=== PATIENT | male | born 1955 | race Caucasian/White ===

== ENCOUNTER 2024-02-03 22:57 | Inpatient (IN) | payer MEDICARE, SELFPAY ==
[2024-02-03 18:12] VITALS: BP 118/63
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
[2024-02-03 18:34] LABS: % Basophils 0.6 % (0-2); % Eosinophils 4.4 % (0-6); % Immature Granulocytes 0.7 % (0-0.5); % Lymphocytes 13.2 % (20.5-51.1); % Neutrophils 71.1 % (42.2-75.2); Absolute Basophils 0.1 10^3/uL (0-0.2); Absolute Eosinophils 0.4 10^3/uL (0-0.7); Absolute Immature Granulocytes 0.1 10^3/uL (0-0.05); Absolute Lymphocytes 1.2 10^3/uL (1.2-3.4); Absolute Monocytes 0.9 10^3/uL (0.1-0.6); Absolute Neutrophils 6.2 10^3/uL (1.4-6.5); Hematocrit 36.4 % (39.0-52.0); Hemoglobin 12.4 g/dL (13.0-18.0); Mean Corp Hgb Conc. 34.1 g/dL (33.0-37.0); Mean Corpuscular Hgb 30.5 pg (27.0-31.0); Mean Corpuscular Volume 89.7 fL (80.0-94.0); Mean Platelet Volume 9.9 fL (7.4-10.4); Nucleated Red Blood Cells % 0 % (-); Platelet Count 276 10^3/uL (130-400); Red Blood Cell Count 4.06 10^6/uL (4.70-6.10); Red Cell Dist. Width 13.4 % (11.5-14.5); White Blood Cell Count 8.7 10^3/uL (4.8-10.8)
[2024-02-03 18:51] LABS: ALT (SGPT) 38 U/L (0-50); AST (SGOT) 33 U/L (17-59); Albumin 3.6 g/dl (3.5-5.0); Alkaline Phosphatase 68 U/L (38-126); Blood Urea Nitrogen 22 mg/dl (9-20); Calcium 8.6 mg/dl (8.4-10.2); Carbon Dioxide 28 mmol/L (22-30); Chloride 99 mmol/L (98-107); Glucose 131 mg/dl (70-99); Potassium 4.1 mmol/L (3.5-5.1); Sodium 135 mmol/L (135-145); Total Bilirubin 0.5 mg/dl (0.2-1.3); Total Protein 6.1 g/dl (6.3-8.2); eGFR 37.71
[2024-02-03 19:02] LABS: NT-proBNP 1730 pg/ml; Troponin I < 0.012 ng/ml
[2024-02-03 20:29] VITALS: BP 134/84
[2024-02-03 21:30] VITALS: BP 152/72
[2024-02-03 21:41] VITALS: BMI 33.8
[2024-02-03] MEDS: LASIX 40 MG IV (21:44)
[2024-02-03] MEDS: PEPCID 20 MG IV (21:47)
[2024-02-03] MEDS: CARAFATE SUSPENSION 1 GM PO (21:47)
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
[2024-02-04] VITALS (13 sets, daily range): BP systolic 77–139; BP diastolic 55–101; BMI 32.9
[2024-02-04 00:52] LABS: COVID-19 Antigen Negative (Negative)
[2024-02-04 06:47] LABS: Hematocrit 34.7 % (39.0-52.0); Hemoglobin 11.6 g/dL (13.0-18.0); Mean Corp Hgb Conc. 33.4 g/dL (33.0-37.0); Mean Corpuscular Hgb 30.4 pg (27.0-31.0); Mean Corpuscular Volume 91.1 fL (80.0-94.0); Mean Platelet Volume 9.9 fL (7.4-10.4); Platelet Count 251 10^3/uL (130-400); Red Blood Cell Count 3.81 10^6/uL (4.70-6.10); Red Cell Dist. Width 13.4 % (11.5-14.5); White Blood Cell Count 8.4 10^3/uL (4.8-10.8)
[2024-02-04 07:01] LABS: Blood Urea Nitrogen 20 mg/dl (9-20); Calcium 8.3 mg/dl (8.4-10.2); Carbon Dioxide 24 mmol/L (22-30); Chloride 102 mmol/L (98-107); Estimated Creatinine Clearance 49 ml/min; Glucose 115 mg/dl (70-99); HDL Cholesterol 25 mg/dl; LDL Cholesterol, Calculated 133 mg/dl; Potassium 4.1 mmol/L (3.5-5.1); Sodium 135 mmol/L (135-145); Total Cholesterol 183 mg/dl (50-199); Triglyceride 125 mg/dl (10-149); Very Low Density Lipoprotein 25 mg/dl (0-30); eGFR 40.24
[2024-02-04 07:10] LABS: Troponin I < 0.012 ng/ml
[2024-02-04 07:31] LABS: TSH Reflex To Free T4 0.45 uIU/ml (0.47-4.68)
[2024-02-04] MEDS: BACTRIM DS 800 MG/160 MG 0.5 TABLET PO (08:13)
[2024-02-04] MEDS: LOW STRENGTH ASPIRIN 81 MG PO (08:13)
[2024-02-04] MEDS: ROXICODONE 5 MG PO ×4 (08:13→22:55)
[2024-02-04] MEDS: LOPRESSOR 25 MG PO (08:13)
[2024-02-04] MEDS: LASIX 40 MG IV (08:14)
[2024-02-04] MEDS: FLOMAX 0.4 MG PO (08:14)
[2024-02-04 08:39] LABS: Glycohemoglobin (HgbA1c) 5.8 % (4.0-5.6)
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
[2024-02-04 08:51] LABS: Free T4 1.56 ng/dl (0.78-2.19)
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
[2024-02-04] MEDS: ULORIC 40 MG PO (09:41)
[2024-02-04] MEDS: FLEXERIL 5 MG PO (11:34)
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
[2024-02-04 14:06] LABS: Troponin I < 0.012 ng/ml
[2024-02-04] MEDS: MIRALAX PO (16:49)
--- NOTE | 2024-02-04 17:43 | PTCARENOTE ---
Patient admitted to IVU, oriented to room and call pulido. Placed on telemetry. Plan of care reviewed with patient, call pulido in reach
[2024-02-04] MEDS: LOVENOX 30 MG SC (17:56)
[2024-02-04 23:16] LABS: Ionized Calcium 1.09 mMOL/L (1.15-1.33)
[2024-02-04 23:48] LABS: Blood Urea Nitrogen 25 mg/dl (9-20); Calcium 8.7 mg/dl (8.4-10.2); Carbon Dioxide 28 mmol/L (22-30); Chloride 99 mmol/L (98-107); Estimated Creatinine Clearance 44 ml/min; Glucose 104 mg/dl (70-99); Magnesium 2.2 mg/dl (1.6-2.3); Potassium 3.7 mmol/L (3.5-5.1); Sodium 135 mmol/L (135-145); eGFR 37.71
[2024-02-05] VITALS (13 sets, daily range): BP systolic 100–139; BP diastolic 53–115; BMI 33.0
[2024-02-05] MEDS: KCL 20 MEQ PO (00:58)
[2024-02-05] MEDS: CALCIUM GLUCONATE 100 IV (00:58)
[2024-02-05 05:43] LABS: B.E. 1.7 mmol/L; HCO3 26.6 mmol/L (21-28); O2 Saturation % 97.7 % (94-98); PCO2 42 mmHg (35-48); PO2 81 mmHg (83-108); pH 7.41 (7.35-7.45)
[2024-02-05 05:53] LABS: O2 Therapy ROOM AIR
[2024-02-05 06:10] LABS: Hematocrit 36.7 % (39.0-52.0); Hemoglobin 12.4 g/dL (13.0-18.0); Mean Corp Hgb Conc. 33.8 g/dL (33.0-37.0); Mean Corpuscular Hgb 30.3 pg (27.0-31.0); Mean Corpuscular Volume 89.7 fL (80.0-94.0); Platelet Count 273 10^3/uL (130-400); Red Blood Cell Count 4.09 10^6/uL (4.70-6.10); Red Cell Dist. Width 13.3 % (11.5-14.5); White Blood Cell Count 7.7 10^3/uL (4.8-10.8)
[2024-02-05 06:28] LABS: INR 1.04; PT 13.9 Sec (11.4-14.6)
[2024-02-05 06:29] LABS: APTT 36.5 Sec (23.4-35.0)
[2024-02-05 06:33] LABS: ALT (SGPT) 34 U/L (0-50); AST (SGOT) 29 U/L (17-59); Albumin 3.4 g/dl (3.5-5.0); Alkaline Phosphatase 57 U/L (38-126); Blood Urea Nitrogen 24 mg/dl (9-20); Calcium 9.2 mg/dl (8.4-10.2); Carbon Dioxide 29 mmol/L (22-30); Chloride 100 mmol/L (98-107); Direct Bilirubin 0.1 mg/dl (0.0-0.4); Estimated Creatinine Clearance 44 ml/min; Glucose 115 mg/dl (70-99); Potassium 4.4 mmol/L (3.5-5.1); Sodium 136 mmol/L (135-145); Total Bilirubin 0.6 mg/dl (0.2-1.3); Total Protein 5.8 g/dl (6.3-8.2); eGFR 37.71
[2024-02-05] MEDS: LASIX 40 MG IV (08:00)
[2024-02-05] MEDS: LOW STRENGTH ASPIRIN 81 MG PO (08:01)
[2024-02-05] MEDS: MIRALAX 17 GRAMS PO (08:01)
[2024-02-05] MEDS: BACTRIM DS 800 MG/160 MG 0.5 TABLET PO (08:01)
[2024-02-05] MEDS: ROXICODONE 5 MG PO ×3 (08:01→22:12)
--- NOTE | 2024-02-05 08:45 | PTCARENOTE ---
Assumed care. Patient awake and sitting on side of bed. Requiring oxygen 2 liters NC overnight POX 88% on room air and frequent PVC's while sleeping. Currently NSR, POX 99% on room air while awake. Fine rales right base, 40 mg IV Lasix given as
scheduled. NPO for cath today
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
--- NOTE | 2024-02-05 09:31 | CM ---
Reviewed chart. Met with Mr. Manjarrez to review discharge plans. He states prior to admission he resides alone in a second floor walk-up apartment. He states he has a full flight of steps to get to his apartment. Once inside the apartment
everything is on one level. He states prior to admission he was independent with ambulation and adls. He states he does not have any DME in the home. He states he has a prescription plan. Medical work-up in progress. The discharge plan is to
return home when medically stable.
--- NOTE | 2024-02-05 12:06 | PTCARENOTE ---
Patient sent to the open hearth laborer in a wheelchair
[2024-02-05] MEDS: ROXICODONE PO (14:52)
--- NOTE | 2024-02-05 16:34 | ITS.CL.CATH ---
Air Tool Operator - Catheterization
Cardiac Catheterization
Procedure Report:
LEFT HEART CATHETERIZATION
Date of Procedure: February 05, 2024
Referring: Abimael Armen
PROCEDURES:
1. Left heart catheterization, coronary angiogram.
2. Ultrasound-guided access
INDICATION: Preoperative prior to mitral valve intervention for severe mitral regurgitation
ACCESS: Right radial artery, 6 Irish sheath, under ultrasound-guided
HEMODYNAMICS : (mmHg)
AO (s/d) : 106/69
LV (s/d) : 106/8
LVEDP : 15
CORONARY FINDINGS
DOMINANCE: Right
LEFT MAIN: The left main artery is a large-caliber vessel which gives rise to the left anterior descending artery and the left circumflex artery. There is minimal luminal irregularities.
LEFT ANTERIOR DESCENDING: The left anterior descending artery is a medium caliber vessel which gives rise to 1 major diagonal branch as it courses through the anterior interventricular groove and wraps around the apex. There is minimal luminal
irregularities.
CIRCUMFLEX: The left circumflex artery is a medium caliber vessel which gives rise to 1 major obtuse marginal branch. There is mild diffuse atherosclerotic plaque.
RIGHT CORONARY ARTERY: The right coronary artery is a large-caliber, dominant vessel which gives rise to the right posterior descending artery and a large right posterolateral system. There is mild diffuse atherosclerotic plaque.
SEDATION: 35 minutes of procedural sedation was utilized. An independent medical transcription radiology was present to assist with and help manage the patient's level of consciousness and physiologic status.
RADIATION SUMMARY: Fluoro Time (min): 1.9, Dose (mGy): 562.86, DAP (Gy.cm2) : 38.8
Closure Device: Vascular band over right radial artery, 10 cc of air.
CONCLUSIONS
1. No obstructive coronary artery disease.
2. LVEDP of 15 mmHg.
RECOMMENDATIONS
1. Wean radial band per protocol.
2. Optimization of cardiovascular risk factors.
3. Defer to CT surgery in regards to mitral valve surgical intervention
4. Eventual referral for outpatient cardiac rehab..
Copy to: Abimale Ayers, and Avel Hayes
Araceli Washington MD, FACC, [facility]
--- NOTE | 2024-02-05 16:49 | PTCARENOTE ---
patient received from optical laboratory manager, AO x3. NSR 86, 132/80. Right radial band in place, precautions reviewed, call pulido in reach
[2024-02-05] MEDS: NSS 1000 IV (17:09)
--- NOTE | 2024-02-05 20:57 | PTCARENOTE ---
Rec'd pt at change of shift. PT AAO*3, VSS, NSR with PVC's on monitor, and pleasant. Pt denies any pain or discomfort. Pt verbalizes comfort and safety. Pt resting in bed with call pulido in reach and agreeable to plan of care. Plan of care
ongoing.
[2024-02-05] MEDS: LOVENOX 30 MG SC (22:12)
[2024-02-06] VITALS (13 sets, daily range): BP systolic 93–146; BP diastolic 45–115; PULSE 76; O2SAT 96; BMI 32.8
[2024-02-06 04:19] LABS: Hematocrit 42.6 % (39.0-52.0); Hemoglobin 14.2 g/dL (13.0-18.0); Mean Corp Hgb Conc. 33.3 g/dL (33.0-37.0); Mean Corpuscular Volume 90.1 fL (80.0-94.0); Platelet Count 340 10^3/uL (130-400); Red Blood Cell Count 4.73 10^6/uL (4.70-6.10); Red Cell Dist. Width 13.3 % (11.5-14.5)
[2024-02-06 04:26] LABS: Blood Urea Nitrogen 25 mg/dl (9-20); Calcium 9.1 mg/dl (8.4-10.2); Carbon Dioxide 24 mmol/L (22-30); Chloride 102 mmol/L (98-107); Estimated Creatinine Clearance 49 ml/min; Glucose 106 mg/dl (70-99); Potassium 4.6 mmol/L (3.5-5.1); Sodium 136 mmol/L (135-145)
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
[2024-02-06] MEDS: ROXICODONE 5 MG PO ×4 (09:24→22:41)
[2024-02-06] MEDS: MIRALAX 17 GRAMS PO (09:24)
[2024-02-06] MEDS: BACTRIM DS 800 MG/160 MG 0.5 TABLET PO (09:25)
[2024-02-06] MEDS: LOW STRENGTH ASPIRIN 81 MG PO (09:25)
[2024-02-06] MEDS: FLOMAX 0.4 MG PO (09:25)
[2024-02-06] MEDS: LASIX 40 MG IV (09:30)
--- NOTE | 2024-02-06 10:43 | W.PN.UPDATE ---
Update Note
Progress Note Update
I met with MR. Manjarrez this morning at the bedside. Severe MR with respiratory failure for admission. 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 There is a large prolapsed segment of P2/3 into the
commissural leaflet with flailed (torn) chords. Reviewing his older TTEs, he had some degree of MR then but likely exacerbated with new torn chords this time around. No significant COR disease. We discussed the risks and benefits of surgery, with
his prior multiple orthopedic traumas to the chest, CKD at baseline, I would offer him sternotomy as an approach with the intent for MV repair + MANDEEP Clip. His STS was reviewed. Tentative plan would be for OR tomorrow with me as second case. I plan
to [place] back around to discuss with his family once they arrive.
--- NOTE | 2024-02-06 11:18 | W.PN.UPDATE ---
Update Note
Progress Note Update
:�Isolated MVr
PERIOPERATIVE OUTCOME ESTIMATE %
Operative Mortality 3.13%
Morbidity & Mortality 14%
Stroke 0.855%
Renal Failure 5.43%
Reoperation 3.82%
Prolonged Ventilation 9.85%
Deep Sternal Wound Infection 0.076%
Long Hospital Stay (>14 days) 13.9%
Short Hospital Stay (<6 days)* 19.1%
*higher values reflect a better outcome
Clinical Summary
Planned Surgery: Isolated MVr, Urgent, First cardiovascular surgery
Demographics: 68 year old, White, male, 103kg, 178cm, BMI: 32.5 kg/m�
Insurance/Payor: Medicare
Lab Values: Creatinine: 1.9 mg/dL, Hematocrit: 42.6%, WBC Count: 9 10�/�L, Platelet Count: 415361 cells/�L
Substance Abuse: Former smoker, Alcohol use: <=1 drink/week
Risk Factors / Comorbidities: Liver Disease, Hypertension
Pulmonary RF: Moderate CLD
Cardiac Status: Acute and chronic heart failure, Ejection Fraction = 60%
Coronary Artery Disease: No coronary symptoms
Valve Disease: Severe MR, Trivial/Trace TR
Arrhythmia: Remote V. Tach / V. Fib
--- NOTE | 2024-02-06 12:13 | CM ---
Reviewed chart. Met with Mr. Manjarrez to review discharge plans. Prior to admission he resides alone in a second floor walk-up apartment. He has a full flight of steps to get into his apartment. It is a one level once inside the apartment.
Prior to admission he was independent with ambulation and adls. He does not have any DME in the home. He has a prescription plan. Medical work-up in progress. The discharge plan is to return home with a home visit by the Transitional Care Nurse
when medically stable.
We reviewed pre-op and post-op routines. We briefly reviewed the shower instructions. Gave him the Cardiothoracic Surgery Educational Booklet. We We reviewed restrictions including sternal precautions and driving restrictions. We also discussed a
home visit by the Transitional Care Nurse. He is agreeable to a home visit. The plan is to [facility] on 02/07/24.
--- NOTE | 2024-02-06 13:24 | W.PN.CD ---
Today's Communication / Plan
-
Likely MVR tomorrow.
GDMT post op.
Impression / Plan
-
Impression/Plan: 68M with recovered stress-induced cardiomyopathy, increased LVOT gradient, mitral regurgitation, right lower extremity DVT status post IVC filter (2011), chronic osteomyelitis on chronic suppression antibiotics, hypertension and
nonobstructive coronary artery disease by cardiac catheterization (2013) admitted with worsening HFpEF, found to have severe mitral valve regurgitation.
#HFpEF
-Acute, new diagnosis, due to severe mitral valve regurgitation.
-Furosemide 40 mg IV.
-Start GDMT after MVR.
#Severe, degenerative mitral regurgitation
-Acute.
-Flail P2 with torn chordae.
-CT surgery consulted. Tentative plan for OR 02/07/2024.
#CAD
-Chronic.
-No angina.
-Nonobstructive by cardiac catheterization 2013, again yesterday.
-Medical management with aspirin and statin.
#Increased LVOT gradient
-In 2013 there was a gradient in the LVOT at rest (9 mmHg), increasing up to 52 mmHg with Valsalva.
-Updated TTE does not show LVOT gradient.
#Acute on chronic kidney disease
-Baseline creatinine (1.3-1.7).
-Creatinine on admission 1.9, down to 1.7 today.
-Avoid nephrotoxins.
#Hepatitis C status post Epclusa
#Prior DVT with IVC filter ([facility], 2011)
#Prediabetes, HbA1c 5.8%
#Chronic osteomyelitis on suppressive antibiotics
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
Primary auto servicer: Dr. Booth (last seen 12/2019)
Subjective/Interval History:
Weight down 0.6 kg (104.4 --> 103.8 kg).
VIOLETA confirms severe MR with flail P2/torn chords.
Creatinine down to 1.7
DATA:
TTE, 02/04/2024:
CONCLUSIONS
Normal biventricular size and systolic function without regional wall motion
abnormality.
Mild concentric left ventricular hypertrophy.
Flail posterior mitral valve leaflet with severe mitral regurgitation.
Severe pulmonary hypertension.
Compared to the prior on 03/17/2020, flail leaflet and severe mitral
regurgitation is new.
Transesophageal Echocardiogram, 02/05/2024:
CONCLUSIONS
Normal biventricular size and systolic function without regional wall motion
abnormality. LVEF 60-65%.
Flail P2 segment of the mitral valve with severe eccentric mitral
regurgitation.
No other significant valvular disease.
No evidence of pulmonary hypertension (28 mmHg).
Trivial circumferential pericardial effusion.
Compared to TTE on 02/04/2024, there is no significant change accounting for
differences in technique.
Cardiac Catheterization, 02/05/2024:
CONCLUSIONS
1. No obstructive coronary artery disease.
2. LVEDP of 15 mmHg.
Physical Exam
Vital Signs/Labs
Vital Signs
Temp Pulse Resp BP Pulse Ox
37.3 C 86 20 127/75 95
02/06/24 11:42 02/06/24 09:30 02/06/24 11:42 02/06/24 09:30 02/06/24 11:42
02/05/24 02/06/24 02/07/24
11:59 11:59 11:59
Actual Weight 104.4 kg 103.8 kg
02/06/24 03:24
02/06/24 03:24
PT 13.9 Sec (11.4-14.6) 02/05/24 05:55
INR 1.04 02/05/24 05:55
APTT 36.5 Sec (23.4-35.0) H 02/05/24 05:55
Magnesium 2.2 mg/dl (1.6-2.3) 02/04/24 23:07
Triglycerides 125 mg/dl (10-149) 02/04/24 06:36
LDL Cholesterol, Calc 133 mg/dl 02/04/24 06:36
VLDL Cholesterol, Calc 25 mg/dl (0-30) 02/04/24 06:36
HDL Cholesterol 25 mg/dl 02/04/24 06:36
Free T4 1.56 ng/dl (0.78-2.19) 02/04/24 06:36
02/03/24
18:28
Wxz-B-Nabnluhmbcn Pept 1730
LAB Results
02/03/24 02/04/24 02/04/24
18:28 06:36 09:01
Troponin I < 0.012 < 0.012 Cancelled
02/04/24 02/04/24 02/04/24
12:46 15:01 18:00
Troponin I < 0.012 Cancelled Cancelled
Physical Exam
Constitutional: No acute distress and Comfortable
EENT: Anicteric and Moist mucous membranes
Cardiovascular: Rhythm & rate is regular, Pedal edema is absent, JVD pressure is normal, Systolic murmur present and S1S2 is normal
Respiratory: Respiratory effort normal, Lungs clear to auscul., Wheeze Absent, Crackles Absent and Rhonchi Absent
GI: Soft, Distention absent, Flat, Non tender and Normal bowel sounds
Neuro/Psych: AO x 3
Other: Cath Site (Right radial/antecubital access site is C/D/I.)
Data Reviewed
-
Date of Service: February 06, 2024
Medical Decision Making: Reviewed Test Results, Independent Historian Assessment and Test Interpretation
EKG: Tracing Personally Visualized and interpreted and Report Reviewed by me
Echo: Tracing Personally Visualized and interpreted and Report Reviewed by me
X-Ray/CT/US/MRI/NUC/PET: Image Personally Visualized and interpreted and Report Reviewed by me
Medical Tests (PFT, Pathology etc): Image Personally Visualized and interpreted and Report Reviewed by me
Labs: Labs Reviewed by me
Old Records: Reviewed
--- NOTE | 2024-02-06 14:18 | PTCARENOTE ---
Discussed all nursing measures prior to implementation. Encouraged questions. Will monitor.
[2024-02-06] MEDS: ULORIC PO (18:01)
--- NOTE | 2024-02-06 20:00 | PTCARENOTE ---
Patient received from IVU, ambulated into room. Oriented, no acute complaints of pain. SR on the monitor with frequent PVCs and RBBB; murmur auscultated. Lungs diminished, satting 96% on RA, no cough. Abdomen obese, normoactive bowel sounds, reports
low appetite over the last few months. Voiding in the bathroom per day shift nurse. PIV x1 in RAC. VSS. Updated on POC, in agreement, call pulido within reach. Assessment of needs ongoing.
--- NOTE | 2024-02-06 20:00 | PTCARENOTE ---
Patient received from IVU, ambulated into room. Oriented, no acute complaints of pain. SR on the monitor with frequent PVCs; murmur auscultated. Lungs diminished, satting 96% on RA, no cough. Abdomen obese, normoactive bowel sounds, reports low
appetite over the last few months. Voiding in the bathroom without difficulty per day shift nurse. Counseled patient on using urinal for I&O's. PIV x1 in RAC. VSS. Updated on POC, in agreement, call pulido within reach. Assessment of needs ongoing.
[2024-02-07] VITALS (13 sets, daily range): BP systolic 100–130; BP diastolic 56–77; BMI 32.4
--- NOTE | 2024-02-07 | PTCARENOTE ---
Patient sleeping between care. Took first shower with CHG per pre op protocol. Reminded the patient to use the urinal to I/O measurement. VSS.
--- NOTE | 2024-02-07 04:30 | PTCARENOTE ---
Assessment unchanged, VSS. Patient prepped for surgery, patient surgical sites clipped, took second CHG shower, wiped with CHG wipes, and placed in a new gown. Therapeutic communication utilized to assuage concerns. Patient in bed awaiting call for
OR. NPO since midnight. Call pulido within reach.
[2024-02-07] MEDS: PROTONIX 40 MG PO (05:04)
[2024-02-07] MEDS: MAGNESIUM OXIDE 500 MG PO (05:04)
[2024-02-07] MEDS: LOPRESSOR 25 MG PO (05:04)
[2024-02-07] MEDS: BACTROBAN 2% OINTMENT 1 APPLIC NASAL ×2 (05:06→20:24)
[2024-02-07 06:06] LABS: Blood Urea Nitrogen 25 mg/dl (9-20); Calcium 9.1 mg/dl (8.4-10.2); Carbon Dioxide 31 mmol/L (22-30); Chloride 98 mmol/L (98-107); Estimated Creatinine Clearance 46 ml/min; Glucose 107 mg/dl (70-99); Magnesium 2.3 mg/dl (1.6-2.3); Potassium 4.3 mmol/L (3.5-5.1); Sodium 136 mmol/L (135-145); eGFR 40.24
--- NOTE | 2024-02-07 06:13 | W.CVOR.SURPR ---
CVOR Surgeon Immed Pre Op
-
I have examined this patient prior to performance of the scheduled procedure.
The patient's condition is unchanged from the time of the dictated/written History and
Physical and the patient is able to undergo the scheduled procedure.
Sternotomy MVrR + MANDEEP Clip
--- NOTE | 2024-02-07 07:26 | W.PN.CD ---
Today's Communication / Plan
-
Hold furosemide this morning.
MVR today.
Impression / Plan
-
Impression/Plan: 68M with recovered stress-induced cardiomyopathy, increased LVOT gradient, mitral regurgitation, right lower extremity DVT status post IVC filter (2011), chronic osteomyelitis on chronic suppression antibiotics, hypertension and
nonobstructive coronary artery disease by cardiac catheterization (2013) admitted with worsening HFpEF, found to have severe mitral valve regurgitation.
#HFpEF
-Acute, new diagnosis, due to severe mitral valve regurgitation.
-Hold furosemide this morning.
-Start GDMT after MVR.
#Severe, degenerative mitral regurgitation
-Acute.
-Flail P2 with torn chordae.
-CT surgery consulted. Tentative plan for OR 02/07/2024.
#CAD
-Chronic.
-No angina.
-Nonobstructive by cardiac catheterization 2013, again yesterday.
-Medical management with aspirin and statin.
#Increased LVOT gradient
-In 2013 there was a gradient in the LVOT at rest (9 mmHg), increasing up to 52 mmHg with Valsalva.
-Updated TTE does not show LVOT gradient.
#Acute on chronic kidney disease
-Baseline creatinine (1.3-1.7).
-Creatinine on admission 1.9, down to 1.7 today.
-Avoid nephrotoxins.
#Hepatitis C status post Epclusa
#Prior DVT with IVC filter ([facility], 2011)
#Prediabetes, HbA1c 5.8%
#Chronic osteomyelitis on suppressive antibiotics
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
Primary reinforcing rod layer: Dr. Booth (last seen 12/2019)
Subjective/Interval History:
Weight down an additional 1.4 kg (103.8 --> 102.4).
Plan for surgery today.
Creatinine stable at 1.8.
DATA:
TTE, 02/04/2024:
CONCLUSIONS
Normal biventricular size and systolic function without regional wall motion
abnormality.
Mild concentric left ventricular hypertrophy.
Flail posterior mitral valve leaflet with severe mitral regurgitation.
Severe pulmonary hypertension.
Compared to the prior on 03/17/2020, flail leaflet and severe mitral
regurgitation is new.
Transesophageal Echocardiogram, 02/05/2024:
CONCLUSIONS
Normal biventricular size and systolic function without regional wall motion
abnormality. LVEF 60-65%.
Flail P2 segment of the mitral valve with severe eccentric mitral
regurgitation.
No other significant valvular disease.
No evidence of pulmonary hypertension (28 mmHg).
Trivial circumferential pericardial effusion.
Compared to TTE on 02/04/2024, there is no significant change accounting for
differences in technique.
Cardiac Catheterization, 02/05/2024:
CONCLUSIONS
1. No obstructive coronary artery disease.
2. LVEDP of 15 mmHg.
Physical Exam
Vital Signs/Labs
Vital Signs
Temp Pulse Resp BP Pulse Ox
36.6 C 78 19 122/75 96
02/07/24 04:26 02/07/24 06:00 02/07/24 04:26 02/07/24 05:56 02/07/24 04:26
02/05/24 02/06/24 02/07/24
11:59 11:59 11:59
Actual Weight 104.4 kg 103.8 kg 102.4 kg
02/06/24 03:24
02/07/24 05:33
PT 13.9 Sec (11.4-14.6) 02/05/24 05:55
INR 1.04 02/05/24 05:55
APTT 36.5 Sec (23.4-35.0) H 02/05/24 05:55
Magnesium 2.3 mg/dl (1.6-2.3) 02/07/24 05:33
Triglycerides 125 mg/dl (10-149) 02/04/24 06:36
LDL Cholesterol, Calc 133 mg/dl 02/04/24 06:36
VLDL Cholesterol, Calc 25 mg/dl (0-30) 02/04/24 06:36
HDL Cholesterol 25 mg/dl 02/04/24 06:36
Free T4 1.56 ng/dl (0.78-2.19) 02/04/24 06:36
02/03/24
18:28
Ixr-O-Xuhwpuisary Pept 1730
LAB Results
02/04/24 02/04/24 02/04/24
09:01 12:46 15:01
Troponin I Cancelled < 0.012 Cancelled
02/04/24
18:00
Troponin I Cancelled
Physical Exam
Constitutional: No acute distress and Comfortable
EENT: Anicteric and Moist mucous membranes
Cardiovascular: Rhythm & rate is regular, Pedal edema is absent, JVD pressure is normal, Systolic murmur present and S1S2 is normal
Respiratory: Respiratory effort normal, Lungs clear to auscul., Wheeze Absent, Crackles Absent and Rhonchi Absent
GI: Soft, Distention absent, Flat, Non tender and Normal bowel sounds
Neuro/Psych: AO x 3
Data Reviewed
-
Date of Service: February 07, 2024
Medical Decision Making: Reviewed Test Results, Independent Historian Assessment and Test Interpretation
EKG: Tracing Personally Visualized and interpreted and Report Reviewed by me
Echo: Tracing Personally Visualized and interpreted and Report Reviewed by me
X-Ray/CT/US/MRI/NUC/PET: Image Personally Visualized and interpreted and Report Reviewed by me
Medical Tests (PFT, Pathology etc): Image Personally Visualized and interpreted and Report Reviewed by me
Labs: Labs Reviewed by me
[2024-02-07] MEDS: BACTRIM DS 800 MG/160 MG 0.5 TABLET PO (08:50)
[2024-02-07] MEDS: LASIX IV (08:50)
[2024-02-07] MEDS: ROXICODONE 5 MG PO (08:50)
[2024-02-07] MEDS: LOW STRENGTH ASPIRIN 81 MG PO ×2 (08:51→21:21)
[2024-02-07] MEDS: MIRALAX PO (08:52)
--- NOTE | 2024-02-07 10:51 | CM ---
Chart reviewed. Patient is in the OR today. Patient is independent of ADLS, lives alone in a 2nd floor apartment, full flight of stairs, 0 DME. Plan is for the patient to return home with CT Transitional RN. CM to follow
[2024-02-07] MEDS: ROXICODONE PO (11:37)
[2024-02-07 11:43] LABS: ACT+ - POC 104 Seconds (82-134)
[2024-02-07 12:03] LABS: Urine Albumin 1+ (Neg - Trace); Urine Bilirubin 1+ (Negative); Urine Character Slightly Cloudy (Clear); Urine Color Yellow; Urine Glucose Negative (Negative); Urine Ketone 1+ (Negative); Urine Leukocyte 1+ (Negative); Urine Nitrite Positive (Negative); Urine Occult Blood 4+ (Negative); Urine Urobilinogen 1+ (Neg - 1+)
[2024-02-07 12:30] LABS: Urine Amorphous Seen; Urine Red Blood Cell >100 /HPF (0-2)
[2024-02-07 12:34] LABS: Urine Bacteria Many (Negative)
[2024-02-07 12:48] LABS: ACT+ - POC 471 Seconds (82-134)
[2024-02-07 13:07] LABS: B.E. - POC -0.5 mmol/L; Glucose - POC 113 mg/dl (70-99); HCO3 - POC 25 mmol/L (21-28); Hematocrit - POC 36 % PCV (42-52); Hemodilution- POC Yes; Hemoglobin Calculated - POC 12.2; Ionized Calcium - POC 1.19 mmol/L (1.15-1.33); O2 Saturation %Calculated-POC 99.1 % (94-98); PCO2 - POC 42 mmHg (35-48); PO2 - POC 138 mmHg (83-108); POC Comment PRE; Potassium - POC 3.9 mmol/L (3.5-5.1); Sodium - POC 141 mmol/L (136-145); Specimen Type - POC Arterial; pH - POC 7.38 (7.35-7.45)
[2024-02-07 13:18] LABS: ACT+ - POC 460 Seconds (82-134)
[2024-02-07 13:54] LABS: B.E. - POC 4.7 mmol/L; Glucose - POC 127 mg/dl (70-99); HCO3 - POC 31 mmol/L (21-28); Hematocrit - POC 27 % PCV (42-52); Hemodilution- POC Yes; Hemoglobin Calculated - POC 9.3; Ionized Calcium - POC 1.04 mmol/L (1.15-1.33); O2 Saturation %Calculated-POC 99.9 % (94-98); PCO2 - POC 52 mmHg (35-48); PO2 - POC 310 mmHg (83-108); POC Comment CPB; Sodium - POC 137 mmol/L (136-145); Specimen Type - POC Arterial; pH - POC 7.38 (7.35-7.45)
[2024-02-07 14:09] LABS: ACT+ - POC 598 Seconds (82-134)
[2024-02-07 14:48] LABS: B.E. - POC 2.9 mmol/L; Glucose - POC 178 mg/dl (70-99); HCO3 - POC 26 mmol/L (21-28); Hematocrit - POC 32 % PCV (42-52); Hemodilution- POC Yes; Hemoglobin Calculated - POC 10.9; Ionized Calcium - POC 1.02 mmol/L (1.15-1.33); O2 Saturation %Calculated-POC 99.6 % (94-98); PCO2 - POC 36 mmHg (35-48); PO2 - POC 172 mmHg (83-108); POC Comment CPB; Potassium - POC 5.5 mmol/L (3.5-5.1); Sodium - POC 136 mmol/L (136-145); Specimen Type - POC Arterial; pH - POC 7.48 (7.35-7.45)
[2024-02-07 14:51] LABS: ACT+ - POC 98 Seconds (82-134)
--- NOTE | 2024-02-07 15:18 | W.PN.CT.SURG ---
Addendum entered and electronically signed by Avel Hayes MD 02/07/24 15:46:
Procedure(s) Performed:
1. Standard sternotomy with aortic and bicaval cannulation
2. Left atrial appendage exclusion [35 mm clip]
3. Radical mitral valve repair [34 mm band annuloplasty, quadrangular resection of the P2 scallop with the flail/torn cords, free edge remodeling between P1 P2 and P2 P3 and artificial Diana-Aureliano cords placed to P1 P2 and P2 P3]
4. Placement of temporary atrial ventricular pacing wires
5. Transesophageal echocardiography\\
6. Patent Foramen Ovale Closure (Atrial Septal Defect), Primarily - done with 5-0 [prolene in a running fashion]
Original Note:
CT Surgery Operative Note
-
CARDIAC SURGERY OPERATIVE REPORT
Preoperative Diagnosis: Myxomatous mitral valve degeneration, flail/torn scallop of the posterior leaflet with severe mitral valve insufficiency and respiratory failure
Postoperative Diagnosis: Same
Procedure(s) Performed:
1. Standard sternotomy with aortic and bicaval cannulation
2. Left atrial appendage exclusion [35 mm clip]
3. Radical mitral valve repair [34 mm band annuloplasty, quadrangular resection of the P2 scallop with the flail/torn cords, free edge remodeling between P1 P2 and P2 P3 and artificial Diana-Aureliano cords placed to P1 P2 and P2 P3]
4. Placement of temporary atrial ventricular pacing wires
5. Transesophageal echocardiography
Date of Surgery: 02/07/2024
Comorbidities:
1. Respiratory failure secondary to acute on chronic congestive systolic and diastolic heart failure
2. Myxomatous mitral valve degeneration with torn/flail segment of the P2 scallop and severe insufficiency
3. History of hepatitis C treatment completed in the past
4. Chronic kidney disease
5. Chronic pain syndrome
6. History of severe traumatic orthopedic injuries requiring multiple extensive surgeries
7. Morbidly obese with a BMI of 32
8. Nonobstructive CAD
9. Hypertension
10. Hyperlipidemia
11. Traumatic brain injury
12. History of drug abuse
Attending Surgeon: Avel Hayes MD, MS
Assistants: Cari Rodriguez PA-C (present and necessary to first aid attendant, retraction, suction, exposure, suture management, and wound closure under my direction)
Anesthesiology: Sam Young MD and Ayo Joy CRNA
Scrub and Circulating RNs: Rosa Tariq RN, Jennifer Nick RN
Grove Worker: Shae Ansari CCP & Audie Knapp CCP
Anesthesia: GETA
EBL: per perfusion records
Products: None
CPB Time: 92 minutes
Aortic Cross Clamp Time: 76 minutes
Indication(s) for Procedures: This is a 68-year-old male with a history of mitral valve insufficiency who presented to hospital with acute respiratory failure and volume overload with acute on chronic congestive heart failure secondary to worsening
mitral valve insufficiency. He was found to have a flail segment of his posterior leaflet as well as prolapse with multiple torn cords of the free margin of P2 into P3. Given his heart failure, he was offered surgical repair with possible
replacement as well as management of his left atrial appendage given the high likelihood that he would later developed atrial fibrillation. The STS risk was discussed with the patient and shared decision making was then pursue operative
intervention.
Mitral Valve Description: Mildly thickened anterior and posterior leaflets, large prolapse segment of the P2 scallop with flail of the P2 scallop and multiple torn cords to the free margin, dilated annulus in both the AP and lateral dimensions.
Findings: His left ventricular ejection fraction preoperatively was 55%, there were no regional wall motion abnormalities. Following surgery his EF remained the same at 55% with no new regional wall motion abnormalities. The degree of MR was
torrential at the beginning of the case. Following surgery and repair of his mitral valve he had none to trace residual mitral valve insufficiency with good excursion of both leaflets and a coaptation height of approximately 8 mm to 1 cm. His
mitral valve was repaired with a combination of a band annuloplasty secured into place with 10 nonpledgeted 2 Ethibond sutures with core knots. The P2 scallop was resected and the quadrangular faction and the annulus was plicated with 5-0 Prolene.
The leaflets were reapproximated 5-0 Prolene in interrupted [id number] fashion. P1 and P2 free margin were remodeled intact together. A set of 4-0 Diana-Aureliano sutures were placed to the anterior lateral palpated muscle head as well as the
posterior medial probably muscle head and anchored to the P1 P2 and P2 P3 free margins, respectively. The left atrial pannus was verified to be free of any thrombus or debris preoperatively and found to be totally occlusive postoperatively. Of
note, after placing the 35 mm clip I was not satisfied, as I felt the base was not flush. Therefore, from the inside of the left atrium I sewed the appendage close using 3-0 Diana-Aureliano excluding any appendage tissue. He was found to be totally
occlusive on VIOLETA evaluation. At the conclusion the case, he was on 1.5 dobutamine with an index of around 1.8 which is better than his starting index. He did not require any blood products. He did not have any systolic anterior motion of the
leaflets and none to trace residual mitral valve insufficiency, the mean gradient across the valve was 4 mmHg. He was in sinus rhythm and did not require any pacing but had atrial and ventricular pacing wires placed.
Specimen(s): P2 scallop with flail cords.
Prosthesis:
1. 35 mm left atrial appendage clip, serial #[id number]
2. 34 mm annuloplasty band, Puente physio flex, serial #[id number].
Description of Procedure: The patient was taken to the operating room. Their identity and procedure to be performed were verified and they were positioned supine on the operating table. Induction via general anesthesia with endotracheal intubation
was performed and central venous access and arterial monitoring were inserted. A preoperative transesophageal echocardiogram was performed to assess cardiac function and valvular function. The patient was then prepped and draped from chin to feet in
a sterile fashion. A preoperative time-out was performed with all members of the team present. A midline chest incision was performed along with median sternotomy. The innominate vein was isolated. Full heparinization was given (a total of 62
units). We created a pericardial well. The aortic cannulation site was chosen where it was soft, pliable, and free of calcium. Cannulation was performed with an arterial cannula in the ascending aorta, angled metal tip cannular in the superior vena
cava and straight bendable cannula in the inferior vena cava. The arterial cannula line had an appropriate bounce and correlating pressures. Next, a root vent/antegrade cannula was inserted into the ascending aorta. The ACT was confirmed to be over
400 and retrograde autologous priming was performed before commencing cardiopulmonary bypass. The pulmonary artery was away from the aorta to facilitate a clamp site. Sondergaard�s groove was developed after creating the oblique sinus. The
aortic cross-clamp was placed after decreasing the flow on the bypass and mean arterial pressure. A total of 1.2L initial dose of antegrade Del-Nido cardioplegia solution was given and planned for re-dosing every 75 minutes as necessary. There was
rapid electro-mechanical arrest of the heart at 400 cc of cardioplegia. The left ventricle was observed for distention on echocardiogram and manual palpation. Cold slush was placed into a lap on the RV and we systemically cooled to 34 degrees
centigrade. Once the heart was arrested, it was medialized and left atrial pannus was clipped with a 35 mm clip. Given that it was not flush the base, at the intention of slowly closing the inside.
Carbon dioxide was used to flood the field. The mitral valve was access via the left atrium at the interatrial groove followed by valve analysis. The left atrial appendage base was then sewn shut with 3-0 Diana-Aureliano in 2 layers. The mitral valve was
repaired as described above. The left ventricular vent was repositioned across the mitral valve into the left ventricular and the left atrium was closed with a 3-0 prolene.
De-airing maneuvers were performed and temporary bipolar ventricular pacing wires were placed on the base of the right ventricle. The patient was placed in a Trendelenburg position and flows on bypass were lowered. The aortic cross clamp was removed
and flows were slowly brought back up. The left atrial suture line was hemostatic. Transesophageal echocardiography revealed no evidence of systolic anterior motion and ventricular function was normal. Once de-airing was satisfactory the left
ventricular and root vents were removed. After verifying acceptable parameters, we initiated weaning from cardiopulmonary bypass. Once we were off cardiopulmonary bypass, the venous cannulas was clamped and removed sequentially. A test dose of
protamine was administered and the patient was monitored for any adverse reaction before resuming protamine. Once half of the protamine dose was delivered, pump suckers were turned off and the systolic blood pressure was lowered for aortic
decannulation. The aortic cannula was removed and purse strings were tied down. All cannulation sites were oversewn with a 4-0 prolene. The left atrial suture line was inspected and hemostasis was confirmed. Mediastinal hemostasis was obtained. Two
#24 Van drains were placed within the pericardium. The sternum was approximated with 4 #7 single and 3 #8 double stainless steel wires. Fascia was approximated with #1 vicryl suture. The subcutaneous, dermis and epidermis were closed in layers in
a running fashion. The skin wound was cleansed and dressed.
All instrument, sponge, and needle counts were confirmed to be correct x 2 at the end of the operation. The patient was transferred to the cardiac intensive care unit in critical but stable condition.
I, Dr. Avel Hayes, was present, scrubbed for, and performed all critical elements of this procedure.
Aevl Hayes MD, MS
Cardiothoracic Surgeon
[facility]
This dictation was created using the F[employer] dictation system. Please excuse any grammatical, typographical, or 'sound alike' errors
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
[2024-02-07] MEDS: VENTOLIN NEBULES 2.5 MG INH (15:44)
[2024-02-07 15:46] LABS: B.E. - POC -3.5 mmol/L; Glucose - POC 176 mg/dl (70-99); HCO3 - POC 22 mmol/L (21-28); Hematocrit - POC 31 % PCV (42-52); Hemodilution- POC Yes; Hemoglobin Calculated - POC 10.6; O2 Saturation %Calculated-POC 94.1 % (94-98); PCO2 - POC 39 mmHg (35-48); PO2 - POC 74 mmHg (83-108); POC Comment POST; Potassium - POC 4.6 mmol/L (3.5-5.1); Sodium - POC 138 mmol/L (136-145); Specimen Type - POC Arterial; pH - POC 7.35 (7.35-7.45)
[2024-02-07 15:50] LABS: Glucose - Point of Care 195 mg/dl (70-99)
--- NOTE | 2024-02-07 15:55 | PTCARENOTE ---
received patient from CVOR sedatedand placed on vent by productivity engineer. Out with usual lines, CTx2 to -20 wall suction. draining red. no air leak/crepitus. Out on SIMV 14/500/5/+8 100%. 88%. Dr Hayes bedside. AV wires present. set to back up rate DDI 40/15/15.
SR on monitor. HR 70-80s. pulses palpable. no edema. Bloody urine on arrival. clots present flushed well. draining adeuqately. MSI MACHINE STONE POLISHER and approximated. R IJ cordis with swa. L Radial Emerald. All lines zerod and calibrated. R AC PIV patent. Out on
levo, dobut, precedex and insulin per glycemic protocol. CI 1.8 on arrival . will continue to monitor.
[2024-02-07 15:56] LABS: B.E. 0.9 mmol/L; HCO3 26.6 mmol/L (21-28); O2 Saturation % 89.2 % (94-98); PCO2 46 mmHg (35-48); PO2 59 mmHg (83-108); Potassium 4.3 mMOL/L (3.5-5.1); Sodium 134 mMOL/L (136-145); pH 7.37 (7.35-7.45)
[2024-02-07 15:58] LABS: Hemoglobin 11.4 g/dL (13.0-18.0); Platelet Count 276 10^3/uL (130-400)
[2024-02-07 15:59] LABS: Mixed Venous O2 Saturation 59.7 %
[2024-02-07] MEDS: DILAUDID 0.5 MG IV ×3 (16:06→23:37)
[2024-02-07 16:09] LABS: INR 1.34; PT 16.9 Sec (11.4-14.6)
[2024-02-07 16:10] LABS: APTT 29.2 Sec (23.4-35.0); Blood Urea Nitrogen 26 mg/dl (9-20); Estimated Creatinine Clearance 49 ml/min; Glucose 184 mg/dl (70-99); Magnesium 2.8 mg/dl (1.6-2.3)
[2024-02-07] MEDS: PACERONE PO (16:10)
[2024-02-07] MEDS: NSS 500 IV (16:18)
[2024-02-07] MEDS: ANCEF 10 IV ×2 (16:20→16:40)
[2024-02-07] MEDS: NOVOLOG FLEXPEN SC ×2 (16:20→16:46)
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
[2024-02-07 16:29] LABS: B.E. -1.7 mmol/L; HCO3 23.7 mmol/L (21-28); O2 Saturation % 96.5 % (94-98); PCO2 42 mmHg (35-48); PO2 78 mmHg (83-108); pH 7.36 (7.35-7.45)
[2024-02-07] MEDS: VERSED 0.5 MG IV ×3 (16:37→18:22)
[2024-02-07] MEDS: TYLENOL 1000 MG PO (16:40)
[2024-02-07] MEDS: NEURONTIN PO ×2 (16:46→22:19)
[2024-02-07 17:09] LABS: Glucose - Point of Care 200 mg/dl (70-99)
[2024-02-07] MEDS: LASIX 40 MG IV (17:43)
[2024-02-07 18:21] LABS: Glucose - Point of Care 180 mg/dl (70-99)
[2024-02-07 18:26] LABS: B.E. 0.8 mmol/L; HCO3 25.3 mmol/L (21-28); Hematocrit 34.4 % (39.0-52.0); Hemoglobin 11.7 g/dL (13.0-18.0); Ionized Calcium 1.22 mMOL/L (1.15-1.33); O2 Saturation % 98.8 % (94-98); PCO2 39 mmHg (35-48); PO2 100 mmHg (83-108); Platelet Count 287 10^3/uL (130-400); Potassium 3.6 mMOL/L (3.5-5.1); pH 7.42 (7.35-7.45)
[2024-02-07 18:32] LABS: O2 Therapy 60%
[2024-02-07] MEDS: KCL 50 IV ×2 (18:47→20:00)
[2024-02-07 19:05] LABS: Glucose - Point of Care 160 mg/dl (70-99)
[2024-02-07 19:13] LABS: B.E. 0.2 mmol/L; HCO3 24.6 mmol/L (21-28); O2 Saturation % 98.6 % (94-98); PCO2 38 mmHg (35-48); PO2 86 mmHg (83-108); pH 7.42 (7.35-7.45)
[2024-02-07 19:15] LABS: O2 Therapy Air 40%
[2024-02-07 20:12] LABS: Glucose - Point of Care 158 mg/dl (70-99)
[2024-02-07] MEDS: SENOKOT-S PO (20:22)
--- NOTE | 2024-02-07 20:30 | PTCARENOTE ---
Patient extubated without difficulty. O2 at 6L via NC. SpO2 96%. Patient A+A+Ox3. No neurological deficits noted. No c/o headache, dizziness or lightheadedness. No s/s of respiratory distress. Minimal secretions. Mouth care provided. Two
Mediastinal chest tubes - Intact and patent -20 ml red drainage - No air leak. Sinus Rhythm with occasional PVC. Heart rate 70-80's. Second K-Gonzalez 20mEq/50ml infusing (K 3.6). AV Wires - Set at DDI Mode - Rate 40, Output 15, A Sensitivity 0.5,
V sensitivity 2.0. No pacer spikes noted. Patient with no c/o chest pain, pressure or discomfort. Abdomen soft, round, nontender. Hypoactive bowel sounds on all four quadrants. No BM. No c/o nausea. No vomiting. Bowman catheter - Latex free -
Yellow urine with occasional to rare small blood clot - Outputs as documented. Positive, palpable pulses. Right I.J. Cordis with [place] Catheter. Left radial arterial line. PAP, CVP, A-Line with pressure bag/saline flush - Flush without
difficulty - Zeroed and calibrated - Waveforms within normal limits. C.O. 3.87 C.I. 1.75 SVR 1219 PAP 33/18 (23) CVP 6. Patient continues on Dobutamine at 3 mcq/kg/min (9 ml/hr). Levophed gtt titration. Sternal incision intact - Surgical
adhesive - Open to air. Assessment as documented.
[2024-02-07] MEDS: CALCIUM GLUCONATE 100 IV (20:50)
[2024-02-07 21:06] LABS: Glucose - Point of Care 156 mg/dl (70-99)
[2024-02-07 22:09] LABS: Glucose - Point of Care 136 mg/dl (70-99)
[2024-02-07] MEDS: TYLENOL PO (22:19)
[2024-02-07] MEDS: DILAUDID 0.25 MG IV (22:22)
[2024-02-07] MEDS: ANCEF 5 IV (22:23)
--- NOTE | 2024-02-07 22:30 | PTCARENOTE ---
Calcium Gluconate 2grams/100ml IV over 1hr - Infused without difficulty. Patient resting in bed without difficulty. C.O. 4.07 C.I. 1.84 SVR 1375 PAP 32/16 (21) CVP 6. Assessment/Interventions as documented.
[2024-02-07] MEDS: LEVOPHED 250 IV (23:24)
[2024-02-07] MEDS: LR 250 ML IV (23:40)
[2024-02-08] VITALS (52 sets, daily range): BP systolic 76–145; BP diastolic 49–82; BMI 33.2
[2024-02-08 00:27] LABS: Glucose - Point of Care 143 mg/dl (70-99)
--- NOTE | 2024-02-08 00:30 | PTCARENOTE ---
Patient given CHG bath and linens changed. Chest tube dressing changed. IV Dilaudid for pain management. Patient sleeping. Assessment/Interventions as documented.
[2024-02-08] MEDS: HEPARIN 5000 UNITS SC ×4 (00:42→23:46)
[2024-02-08 02:22] LABS: Glucose - Point of Care 143 mg/dl (70-99)
[2024-02-08] MEDS: DILAUDID 0.25 MG IV ×3 (02:39→22:16)
--- NOTE | 2024-02-08 02:45 | PTCARENOTE ---
Patient A+A+Ox3. No neurological deficits noted. C.O. 4.87 C.I. 2.20 SVR 1051 PAP 33/16 (22) CVP 7. Levophed gtt titrated to off. Assessment/Interventions as documented.
[2024-02-08] MEDS: ROXICODONE 5 MG PO ×3 (02:54→23:44)
[2024-02-08 03:18] LABS: Glucose - Point of Care 154 mg/dl (70-99)
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
[2024-02-08 03:49] LABS: Mixed Venous O2 Saturation 60.2 %
[2024-02-08] MEDS: DILAUDID 0.5 MG IV ×4 (03:49→16:50)
[2024-02-08 03:51] LABS: Hematocrit 31.4 % (39.0-52.0); Hemoglobin 10.7 g/dL (13.0-18.0); Mean Corp Hgb Conc. 34.1 g/dL (33.0-37.0); Mean Corpuscular Hgb 30.4 pg (27.0-31.0); Mean Corpuscular Volume 89.2 fL (80.0-94.0); Mean Platelet Volume 9.9 fL (7.4-10.4); Platelet Count 235 10^3/uL (130-400); Red Blood Cell Count 3.52 10^6/uL (4.70-6.10); Red Cell Dist. Width 13.2 % (11.5-14.5); White Blood Cell Count 13.7 10^3/uL (4.8-10.8)
[2024-02-08 03:52] LABS: Ionized Calcium 1.18 mMOL/L (1.15-1.33)
[2024-02-08 04:06] LABS: Glucose - Point of Care 166 mg/dl (70-99)
[2024-02-08 04:20] LABS: Blood Urea Nitrogen 33 mg/dl (9-20); Calcium 8.6 mg/dl (8.4-10.2); Carbon Dioxide 26 mmol/L (22-30); Chloride 103 mmol/L (98-107); Estimated Creatinine Clearance 38 ml/min; Glucose 149 mg/dl (70-99); Magnesium 2.4 mg/dl (1.6-2.3); Potassium 4.5 mmol/L (3.5-5.1); Sodium 137 mmol/L (135-145); eGFR 31.63
[2024-02-08] MEDS: NOVOLIN R INSULIN INFUSION 100 IV (04:22)
--- NOTE | 2024-02-08 04:25 | PTCARENOTE ---
Patient with c/o pain. Roxicodone 5 mg PO given. IV Dilaudid 0.5 mg administered due to patient's c/o severe pain - Positive relief provided. C.O. 4.99 C.I. 2.26 SVR 1010 PAP 33/14 (22) CVP 7. Assessment/Interventions as documented.
[2024-02-08 05:29] LABS: Glucose - Point of Care 138 mg/dl (70-99)
[2024-02-08] MEDS: ANCEF 5 IV ×2 (05:57→13:09)
[2024-02-08] MEDS: TYLENOL 1000 MG PO ×2 (05:57→13:09)
[2024-02-08] MEDS: CALCIUM GLUCONATE 100 IV (06:00)
[2024-02-08 06:15] LABS: Glucose - Point of Care 130 mg/dl (70-99)
--- NOTE | 2024-02-08 06:30 | PTCARENOTE ---
Patient A+A+Ox3. No neurological deficits noted. Patient with c/o tip of penis hurting - Bowman with urine. Bladder scan did not product urine result - Zero result. Bowman output as documented. Physician's Public Health Assistant for CT Surgery, Carlos Garcia
PA-C, evaluated patient and spoke with patient. Dobutamine gtt at 2.5. Second Calcium gluconate rider administered per PA order. C.O. 5.24 C.I. 2.37 SVR 1099 PAP 39/18 (24) CVP 7. Assessment/Intervention as documented.
[2024-02-08] MEDS: LIDOCAINE 4% PATCH 1 PATCH TOPICAL (08:16)
[2024-02-08] MEDS: BACTROBAN 2% OINTMENT 1 APPLIC NASAL ×2 (08:17→21:00)
--- NOTE | 2024-02-08 08:20 | W.PN.INTV ---
Today's Communication / Plan
Recommendations
Left-sided chest tube placed at bedside by Dr. Alba
Keep on negative suction for today and once airleak has resolved then would lower suction to -20 cm of water
Re-check CXR s/p chest tube to assure PTX has improved
Avoid positive pressure modalities like CPAP or high flow as this will worsen his PTX
Avoid incentive spirometer as well due to the reasons above
Pain control
Continue with O2 via Ventimask and can use nasal cannula while eating, maintaining hyperoxic conditions to assist with nitrogen washout to help resolve pneumothorax
Bedrest for today
Pattern Layout Worker/Pulmonary service will continue to follow along
Assessment
-
Assessment: 68-year-old male with a past medical history of mitral regurgitation, foot drop, right lower extremity DVT s/p IVC filter, chronic osteomyelitis of tibia/fibula, history of PVCs, history of stress-induced cardiomyopathy, gout and
hepatitis C who presents with shortness of breath and chest pain. He went to the beach with family at [facility] and noted significant dyspnea with activity. He was diagnosed with acute heart failure as proBNP was elevated at 1730; chest x-ray
showed bilateral confluent airspace opacities concerning for pneumonia. Echo performed on 02/04/2024 showed severe pulmonary hypertension with PASP 70 mmHg, with flail posterior mitral valve leaflet with severe mitral regurgitation. Cardiothoracic
surgery was consulted and he underwent a left heart cath on 02/05/2024, showing no obstructive CAD with LVEDP of 15 mmHg. Mitral valve repair was recommended to the patient and he agreed to procedure. Today he underwent radical mitral valve repair
with left atrial appendage exclusion with 35mm clip. There were no complications postprocedure and he was transferred to the CVICU for further care. Pattern Layout Worker services consulted for additional management/recommendations.
Chronic conditions [employer]: Depression, mitral regurgitation, foot drop, history of right lower extremity DVT s/p IVC filter,, chronic pain syndrome, chronic osteomyelitis of tibia/fibula with drain, history of PVCs, history of stress-induced
cardiomyopathy (2011), gout, hepatitis C
Impression:
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
#Large left-sided pneumothorax
#Acute respiratory failure with hypoxia due to acute pulmonary edema
#Acute HFpEF exacerbation with bilateral cardiogenic pulmonary edema and pleural effusions (R >L)
#Acute anemia
#JULIAN on CKD (last creatinine on file prior to this hospitalization was from May 2016 at 1.5)
#Hyperglycemia (HbA1c: 5.8 from 02/04/2024)
#Abnormal urinalysis with positive urine nitrites, +1 leukocyte esterase and 11�15 urine squamous epithelial cells
#Former heavy tobacco smoker (20-30 cigarettes/day � quit 2011)
#Moderate COPD with postbronchodilator FEV1: 1.9 L / 57% predicted (via spirometry on 02/05/2024)
#History of hepatitis C s/p treatment
#Chronic pain syndrome
#History of severe traumatic orthopedic injuries requiring multiple extensive surgeries
#Nonobstructive CAD
#History of TBI
#History of drug abuse
Plan:
Patient was successfully extubated to nasal cannula on 02/07/2024, and is currently saturating well at 90% however on high flow nasal cannula at FiO2 60% and 40 L/min
He has a left-sided pneumothorax with worsening size seen on repeat CXR this morning
Chest tube placed at bedside by pulmonary service (Dr. Alba)
Removed from high flow nasal cannula as the positive pressure will worsen his pneumothorax --> placed onto NRB during chest tube insertion procedure
Now that chest tube has been placed, changed from nonrebreather to Ventimask and while he eats he can be on nasal cannula between 4-6 L/min; want to maintain hyperoxic conditions to help with nitrogen washout
Maintain SpO2 >88%
prn nebulized bronchodilators --> not currently bronchospastic
Additional Lasix given on 02/06 given his acute pulmonary edema with worsening saturations while on mechanical ventilation
Pulmonary artery catheter parameters will be followed
Pressors/antihypertensive/inotropes/diuretics will be provided as needed
Maintain MAP>65
Replete electrolytes with K>4, Mg>2
Monitor chest tube output (mediastinal chest tubes x 2 and now left pleural chest tube)
Monitor hemoglobin
Monitor platelet count and coags
Transfuse blood products as needed to maintain Hb>7g/dL, plt>50k (given post-operative status)
CT surgery managing chest tubes
Renally dose all meds; trend sCr and monitor I/O
Continue diuresis and aim for net negative 1.5-2L per day; should avoid PAP as this can worsen his L-sided PTX
Monitor blood sugar to maintain euglycemia with goal BG 140-180
Insulin drip per protocol
Aspiration precautions
DVT prophylaxis
Avoidance and spirometer for now given his left-sided pneumothorax as this will potentially worsen his pneumothorax
Early nutrition
Early mobilization
Critical care statement: A total of 41 minutes of critical care time was provided for this patient today. This includes management of ventilator, spontaneous breathing trial, arterial blood gases, pressors, of unstable vital signs, evaluation of the
patient at bedside, reviewing the patient's pertinent medical records including radiographs, microbiology, laboratory evaluations, and discussion with primary team and critical care nursing.
Data:
CXR 02/07/2024:
New postoperative changes as detailed above
No active cardiopulmonary disease.
No pneumothorax
CXR 02/08/2024:
The endotracheal tube has been removed.
Small left apical pneumothorax, more conspicuous compared to the previous radiograph.
Stable position of the right internal jugular approach Lily-Roney catheter and chest tubes/mediastinal drains. Sternotomy wires, left atrial appendage clip, and a cardiac valve prosthesis. Improved aeration of the mid to lower left lung. No pleural
effusion. The cardiomediastinal silhouette is normal.
Subjective Dataa
Subjective Data
Date of Service:
Date of Service: February 08, 2024
Chief Complaint: Pattern Layout Worker Follow Up
Subjective:
Patient was seen and evaluated today at bedside. Currently on insulin drip at 3units/hr and dobutamine at 2.5 mcg/kg/min. He complains of substernal chest pain and shortness of breath. He is currently on high flow nasal cannula at 40 L/min, 60%
FiO2. Mediastinal chest tubes x [address]. Currently, heart rate 73, BP 129/62 via left radial A-line, PAP: 40/19, SpO2: 98% and CO/CI: 6.13/2.77, respectively
Review of Systems
General: Other (Negative unless mentioned above)
Objective Data
Data Reviewed
Vital Signs / I&O / Oxygen:
Vital Signs
Temp Pulse Resp BP Pulse Ox
98.8 F 78 17 123/67 95
02/08/24 09:00 02/08/24 09:12 02/08/24 09:12 02/08/24 09:00 02/08/24 09:12
Intake and Output
02/07/24 02/08/24 02/09/24
06:59 06:59 06:59
Intake Total 360 / 360 1737.3 / 1768.8 154.5 / 154.5
Output Total 500 / 500 2515 / 2610 235 / 235
Balance -140 / -140 -777.7 / -841.2 -80.5 / -80.5
SaO2 [P-SIMV] 95
SaO2 95
Nasal Cannula flow liters per 4
minute
Physical Exam
General: Respiratory Distress (mild), Pain (chest pain (substernal)), Chills (negative) and Sweats (negative)
HEENT: Normocephalic and Anicteric
Cardiovascular: S1-S2 and Peripheral Edema (negative)
Respiratory: Wheeze (negative), Crackles (negative), Rhonchi (negative), Accessory Resp Muscle Use (mild), Stridor (negative) and Chest Tube (Mediastinal chest tubes x 2)
GI: Soft, Distended (Abdominal obesity), Non Tender and Normal Bowel Sounds
Neurology: AO x 3 and Tremors (negative)
Skin: Warm, Dry, Cyanosis (negative) and Jaundice (negative)
Labs/Micro/Reports
Lab Data
02/08/24 03:39
Laboratory Results
02/07/24 02/07/24 02/07/24
15:31 16:23 18:18
PT 16.9 H
INR 1.34
APTT 29.2
pH 7.37 7.36 7.42
pCO2 46 42 39
pO2 59 L* 78 L 100
HCO3 26.6 23.7 25.3
O2 Delivery Level 60%
02/07/24
19:01
PT
INR
APTT
pH 7.42
pCO2 38
pO2 86
HCO3 24.6
O2 Delivery Level Air 40%
Microbiology
02/04/24 20:00 Nose MRSA Screen - Final
No Methicillin Resistant Staphylococcus aureus isolated.
[2024-02-08] MEDS: SENOKOT-S 1 TABLET PO (08:21)
[2024-02-08] MEDS: BACTRIM DS 800 MG/160 MG 0.5 TABLET PO (08:22)
[2024-02-08] MEDS: NEURONTIN 100 MG PO ×2 (08:22→16:21)
[2024-02-08] MEDS: FEOSOL 325 MG PO (08:22)
[2024-02-08] MEDS: PROTONIX 40 MG PO (08:22)
[2024-02-08] MEDS: LOW STRENGTH ASPIRIN 81 MG PO (08:22)
[2024-02-08] MEDS: FLOMAX 0.4 MG PO (08:22)
[2024-02-08] MEDS: FLEXERIL 5 MG PO (08:23)
[2024-02-08] MEDS: ULORIC PO (08:29)
--- NOTE | 2024-02-08 08:30 | PTCARENOTE ---
Patient received from morale officer RN; AAOx3, responds spontaneously to RN and follows commands; Anxious; Shallow respirations; SpO2 94-98% on 6L NC; Non-productive, occasional cough; IS 750 ml; CT x2 connected to -20 wall suction draining
serosanguineous drainage - no tidaling, air leak, or crepitus noted at this time; Lungs diminished throughout; Epicardial AV wires with temporary pacemaker settings 40/15/0.5 and 40/15/2.0; NSR with occasional PVC's on monitor; +1 DP and +2 radial
pulses; Poor appetite at this time; Hypoactive BS; Bowman catheter draining clear, yellow urine with occasional brown blood clots - patient complaining of discomfort near tip of penis but no redness or skin issues noted; Surgical sites intact; PIVx2
#20 left wrist and #18 RAC; Left radial arterial line and RIJ Cordis with Margot floated to 47 - all lines zeroed and level; RIJ Cordis with KVO infusing; Insulin and Dobutamine infusing - see nursing flowsheets for further details; PRN Dilaudid
given for 8/10 pain in penis and sternum; See nursing documentation for further information.
[2024-02-08] MEDS: NOVOLOG FLEXPEN 4 UNITS SC (08:45)
--- NOTE | 2024-02-08 09:16 | W.PN.CD ---
Today's Communication / Plan
-
Repeat furosemide 80 mg IV x1 this morning and monitor.
Encourage incentive spirometry.
Small left apical PTX. Chest tube/pain management per CT surgery.
Wean pressors/inotropes to MAP > 65 mmHg, CI > 1.8 L/min/m2.
Monitor renal function with diuresis.
Impression / Plan
-
Impression/Plan: 68M with recovered stress-induced cardiomyopathy, increased LVOT gradient, mitral regurgitation, right lower extremity DVT status post IVC filter (2011), chronic osteomyelitis on chronic suppression antibiotics, hypertension and
nonobstructive coronary artery disease by cardiac catheterization (2013) admitted with worsening HFpEF, found to have severe mitral valve regurgitation.
#HFpEF
-Acute, new diagnosis, due to severe mitral valve regurgitation.
-Start GDMT after MVR.
#Severe, degenerative mitral regurgitation
-Acute.
-Flail P2 with torn chordae.
-S/P radical MV repair (#34 Puente Physio Flex band annuloplasty [Serial #[id number]], quadrangular resection of P2 scallop, free edge remodeling and Gortex cords to P1/P2, P2/P3) with Dr. Hayes, 02/07/2024.
-S/P LAAE (#35 Atriclip) with Dr. Hayes, 02/07/2024.
-S/P ASD closure.
-Routine post operative management.
-Wean pressors/inotropes to MAP > 65 mmHg, CI > 1.8 L/min/m2.
-Encourage incentive spirometry.
-Chest tube/pain management per CT surgery. Small left apical PTX on CXR.
-Furosemide 80 mg IV x1 and monitor.
#CAD
-Chronic.
-No angina.
-Nonobstructive by cardiac catheterization 2013, again this admission.
-Medical management with aspirin and statin.
#Increased LVOT gradient
-In 2013 there was a gradient in the LVOT at rest (9 mmHg), increasing up to 52 mmHg with Valsalva.
-Updated TTE does not show LVOT gradient.
#Acute on chronic kidney disease
-Baseline creatinine (1.3-1.7).
-Creatinine 2.2 today.
-Obviously volume overloaded (in the context of surgery).
-BP/CI are stable (normal). Likely from cardiorenal syndrome and being on the down slope of the Marlon-Starling curve.
-Monitor with diuresis. Avoid nephrotoxic medications.
#Hepatitis C status post Epclusa
#Prior DVT with IVC filter (, 2011)
#Prediabetes, HbA1c 5.8%
#Chronic osteomyelitis on suppressive antibiotics
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
Primary drafter construction: Dr. Booth (last seen 12/2019)
Critical Care Time = 45 minutes.
Subjective/Interval History:
MVR + LAAE yesterday.
Weight up to 105.1 kg (<--102.4 kg). Furosemide 40 mg IV given yesterday (17:43).
BP stable.
CI has progressively risen.
Cr up to 2.2.
UA is positive (traumatic rm?). No fever. +Leukocytosis but this is seen post op.
DATA:
TTE, 02/04/2024:
CONCLUSIONS
Normal biventricular size and systolic function without regional wall motion
abnormality.
Mild concentric left ventricular hypertrophy.
Flail posterior mitral valve leaflet with severe mitral regurgitation.
Severe pulmonary hypertension.
Compared to the prior on 03/17/2020, flail leaflet and severe mitral
regurgitation is new.
Transesophageal Echocardiogram, 02/05/2024:
CONCLUSIONS
Normal biventricular size and systolic function without regional wall motion
abnormality. LVEF 60-65%.
Flail P2 segment of the mitral valve with severe eccentric mitral
regurgitation.
No other significant valvular disease.
No evidence of pulmonary hypertension (28 mmHg).
Trivial circumferential pericardial effusion.
Compared to TTE on 02/04/2024, there is no significant change accounting for
differences in technique.
Cardiac Catheterization, 02/05/2024:
CONCLUSIONS
1. No obstructive coronary artery disease.
2. LVEDP of 15 mmHg.
Intraoperative VIOLETA, 02/07/2024:
CONCLUSIONS
Severe mitral regurgitation, prolapsed junction of P2 P3 scallops with flail
segment. Anterior leaflet height is 30 mm.
Normal left biventricular size and systolic function.
Moderate left atrial enlargement. No thrombus in left atrial appendage.
Mild TR. Trace MR.
POST OPERATIVE FINDINGS
Status post mitral valve repair and a 34 mm annuloplasty ring, the ring is
well-seated, no perivalvular leak, there is evidence of resected posterior
leaflet segment. There is a residual trace mitral regurgitation. No mitral
stenosis. Mean gradient across the valve 4 mmHg.
Status post left atrial appendage exclusion, no flow seen through the left
atrial appendage remnant.
Status post closure of PFO, no flow seen across the interatrial septum.
Normal right ventricular size and function.
Trace TR. Trace AI.
The rest of the study is unchanged.
Physical Exam
Vital Signs/Labs
Vital Signs
Temp Pulse Resp BP Pulse Ox
37.1 C 75 16 140/72 91
02/08/24 08:00 02/08/24 08:08 02/08/24 08:08 02/08/24 08:08 02/08/24 08:08
02/06/24 02/07/24 02/08/24
11:59 11:59 11:59
Actual Weight 103.8 kg 102.4 kg 105.1 kg
02/08/24 03:39
PT 16.9 Sec (11.4-14.6) H 02/07/24 15:31
INR 1.34 02/07/24 15:31
APTT 29.2 Sec (23.4-35.0) 02/07/24 15:31
Magnesium 2.4 mg/dl (1.6-2.3) H 02/08/24 03:39
Triglycerides 125 mg/dl (10-149) 02/04/24 06:36
LDL Cholesterol, Calc 133 mg/dl 02/04/24 06:36
VLDL Cholesterol, Calc 25 mg/dl (0-30) 02/04/24 06:36
HDL Cholesterol 25 mg/dl 02/04/24 06:36
Free T4 1.56 ng/dl (0.78-2.19) 02/04/24 06:36
02/03/24
18:28
[id number] Pept 1730
Physical Exam
Constitutional: No acute distress and Comfortable
EENT: Anicteric and Moist mucous membranes
Cardiovascular: Rhythm & rate is regular, Pedal edema present (Mild.), S1S2 is normal and Murmur/rub/gallop absent
Respiratory: Respiratory effort normal and Other (Decreased throughout.)
GI: Soft, Distention absent, Flat, Non tender and Normal bowel sounds
Neuro/Psych: AO x 3
Data Reviewed
-
Date of Service: February 08, 2024
Medical Decision Making: Reviewed Test Results, Independent Historian Assessment, Test Interpretation and Review of Case with other Provider
EKG: Tracing Personally Visualized and interpreted and Report Reviewed by me
Echo: Tracing Personally Visualized and interpreted and Report Reviewed by me
X-Ray/CT/US/MRI/NUC/PET: Image Personally Visualized and interpreted and Report Reviewed by me
Medical Tests (PFT, Pathology etc): Image Personally Visualized and interpreted and Report Reviewed by me
Labs: Labs Reviewed by me
Old Records: Reviewed
[2024-02-08] MEDS: LASIX 40 MG IV (10:54)
[2024-02-08] MEDS: KCL 10 MEQ PO (10:54)
--- NOTE | 2024-02-08 11:50 | W.PN.UPDATE ---
Update Note
Progress Note Update
Patient was seen and evaluated this morning. CXR this morning showed large L-sided pneumothorax about 5 cm from the left lung apex, and patient was symptomatic with substernal chest pain and shortness of breath. He was on a high flow nasal cannula
at 60% FiO2 and 40L/min, and I adjusted this to a nonrebreather.
Repeat CXR done again this morning showing worsening pneumothorax which is now about 6.5 cm from the cupula. Decision made to urgently place chest tube. This was first confirmed to be appropriate with the cardiothoracic surgeon, Dr. Hayes. Verbal
consent obtained from the patient given the symptomatic nature of the patient, which is why written consent was not obtained. Bedside nurse made aware and procedure to be performed at bedside (see separate procedure note).
[2024-02-08] MEDS: SUBLIMAZE 25 MCG IV (12:00)
[2024-02-08] MEDS: ATIVAN 0.5 MG IV (12:00)
[2024-02-08 12:37] LABS: Glucose - Point of Care 119 mg/dl (70-99)
[2024-02-08 12:37] LABS: Glucose - Point of Care 105 mg/dl (70-99)
--- NOTE | 2024-02-08 12:39 | W.SUR.POST ---
Surgical Immediate Post Op
Note
Chest Tube Insertion Procedure
Date of procedure: 02/08/2024
Pre Op Diagnosis: Large left-sided pneumothorax
Post Op Diagnosis: Same as above
Procedure Performed: Small bore tube thoracostomy insertion
Primary Surgeon/proceduralist: Dr. Alba
Secondary Surgeons: N/A
Anesthesia: 75mcg of fentanyl, 0.5mg IV ativan
Estimated Blood Loss: 5cc
Fluids: N/A
Drains/Shunts: N/A
Specimens/Cultures: N/A
Doppler/Duplex/Angio (Y/N): N/A
Complications: No immediate complications
Operative Findings: After verbal consent was obtained, patient was positioned into reverse Trendelenburg position. Full sterile technique was performed including handwashing, cap, gown, sterile gloves and mask. [place] pneumothorax kit was utilized
with 14 Sinhala catheter. Patient was first anesthetized at the skin/subcutaneous tissue with 1% lidocaine without epinephrine. During this lidocaine instillation, air bubbles were seen in catheter tubing. Trocar then inserted at the second
intercostal space at the midclavicular line until air was suctioned. Trocar was held in place while guidewire was inserted without resistance. Trocar was removed entirely. Incision made at the skin at the site of the guidewire. Dilator placed
over the guidewire into skin/subcutaneous tissue and then removed. Chest tube was inserted without resistance and guidewire and stiffening catheter inside chest tube were removed. Chest tube attached to suction and there was an immediate level 1
airleak seen. Patient remained stable throughout this entire procedure and there were no immediate complications. Chest tube site was covered with Vaseline gauze and sutured in place and then covered with additional Tegaderm and silk tape.
[2024-02-08] MEDS: NSS (PRESERVATIVE FREE) 0.25 ML IV (12:40)
[2024-02-08] MEDS: NOVOLOG FLEXPEN SC (12:40)
[2024-02-08 12:44] LABS: Glucose - Point of Care 96 mg/dl (70-99)
--- NOTE | 2024-02-08 12:45 | PTCARENOTE ---
Patient placed on high flow nasal canula by RT as ordered by CVWALESKA Alcala for pneumothorax findings on CXR from AM. IV Lasix 40 and PO K 10 ordered and given. Follow up CXR urgently moved up by MD Alba after reviewing CXR and patient. Upon follow
CXR results, MD Alba inserted left pleural chest tube at bedside - IV Fentanyl and Ativan given by RN for comfort. Chest tube connected to -40 wall suction - +1 air leak present but no tidaling, crepitus, or drainage noted.
[2024-02-08] MEDS: ZOFRAN 4 MG IV (12:49)
[2024-02-08] MEDS: SUBLIMAZE 50 MCG IV (13:16)
[2024-02-08] MEDS: XYLOCAINE 2% MDV 10 ML INFIL (13:16)
[2024-02-08] MEDS: FERRLECIT 110 MG IV (13:21)
--- NOTE | 2024-02-08 13:37 | W.PN.ANS.POP ---
Anesthesia Post Operative
- Anesthesia Post Op Note
Vital Signs Stable-See Nursing Note: Yes
Airway Patent: Yes
Adequate Pain Control: Yes
Change in Mental Status: No
Current Postoperative Nausea & Vomiting: No
Anesthesia Complications: No
General Anesthetic Recall: No
Unplanned Admission: No
Post Op Hydration Adequate: Yes
[2024-02-08 13:44] LABS: Blood Urea Nitrogen 35 mg/dl (9-20); Calcium 8.7 mg/dl (8.4-10.2); Carbon Dioxide 28 mmol/L (22-30); Chloride 100 mmol/L (98-107); Estimated Creatinine Clearance 38 ml/min; Glucose 105 mg/dl (70-99); Potassium 4.5 mmol/L (3.5-5.1); Sodium 135 mmol/L (135-145); eGFR 31.63
[2024-02-08] MEDS: LOPRESSOR 2.5 MG IV ×2 (14:10→14:17)
[2024-02-08] MEDS: CORDARONE 103 MG IV (14:24)
[2024-02-08] MEDS: NSS IV (14:25)
[2024-02-08 14:31] LABS: Glucose - Point of Care 183 mg/dl (70-99)
--- NOTE | 2024-02-08 15:47 | PTCARENOTE ---
Patient went into afib with RVR at 1403 while drinking apple juice in bed; HR 140's; Patient denies dizziness, lightheadedness, chest pain, or SOB; CVPA Cari notified and aware - EKG done, IV Lopressor 2.5 mg given x2, and IV Amiodarone bolus given;
Patient converted to SB at 1424 and BP dropped to 70's/50's shortly afterwards; Levo infusion started and pacemaker settings adjusted - BP with good response to pacemaker; Urine output and cardiac index low following stabilizing patient's BP - CVPA
Cari notified and aware; MVO2 ordered; See nursing flowsheets for further details.
CO: 3.92
CI: 1.77
SVR: 857
[2024-02-08 16:14] LABS: Mixed Venous O2 Saturation 63.3 %
[2024-02-08 16:14] LABS: Glucose - Point of Care 114 mg/dl (70-99)
[2024-02-08] MEDS: NOVOLOG FLEXPEN-MODERATE RESISTANCE SC (17:09)
[2024-02-08] MEDS: BUMEX 1 MG IV (18:14)
--- NOTE | 2024-02-08 18:25 | PTCARENOTE ---
Patient continues to have low urine output and low CI - CVPA Cari ordered IV Bumex 1 mg; MVO2 63.3; SpO2 87-91% on 11 L Midflow NC - changed to 15L non-rebreather and now SpO2 91-94%; Maintained on levophed and dobutamine infusions.
[2024-02-08 20:36] LABS: Hematocrit 30.6 % (39.0-52.0); Hemoglobin 10.1 g/dL (13.0-18.0); Mean Corpuscular Hgb 29.9 pg (27.0-31.0); Mean Corpuscular Volume 90.5 fL (80.0-94.0); Platelet Count 239 10^3/uL (130-400); Red Blood Cell Count 3.38 10^6/uL (4.70-6.10); Red Cell Dist. Width 13.6 % (11.5-14.5); White Blood Cell Count 18.5 10^3/uL (4.8-10.8)
[2024-02-08 20:36] LABS: B.E. -1.4 mmol/L; HCO3 25.2 mmol/L (21-28); O2 Saturation % 98.1 % (94-98); PCO2 50 mmHg (35-48); PO2 86 mmHg (83-108); pH 7.31 (7.35-7.45)
[2024-02-08 20:39] LABS: Ionized Calcium 1.16 mMOL/L (1.15-1.33)
[2024-02-08 20:48] LABS: Lactic Acid 0.8 mmol/L (0.7-2.0)
[2024-02-08 20:50] LABS: Blood Urea Nitrogen 39 mg/dl (9-20); Calcium 8.4 mg/dl (8.4-10.2); Carbon Dioxide 26 mmol/L (22-30); Chloride 98 mmol/L (98-107); Estimated Creatinine Clearance 33 ml/min; Glucose 146 mg/dl (70-99); Magnesium 2.3 mg/dl (1.6-2.3); Potassium 4.7 mmol/L (3.5-5.1); Sodium 133 mmol/L (135-145); eGFR 25.88
[2024-02-08 20:57] LABS: NT-proBNP 2500 pg/ml
--- NOTE | 2024-02-08 21:00 | PTCARENOTE ---
Patient received in bed watching television. Patient A+A+Ox3. No neurological deficits noted. No c/o headache, dizziness or lightheadedness. Non-Rebreather Mask 15L O2. SpO2 92%. Two Mediastinal chest tubes - Intact and patent - 20 ml red
drainage - No air leak. Left Pleural chest tube - Intact and patent - 5 ml serosanguineous drainage - +1 air leak. No crepitus noted. HU. lunchroom monitor displaying AV Pacing - Heart rate 70. Epicardial Temporary Pacemaker - AV Wires - A
70/7/1.2 V 70/6/0.8. Physician's Classifier Tender for CT Surgery, Carlos Garcia PA-C, changed settings to Rate 45/0/0. Patient's heart rate 70's - Sinus Rhythm with occasional PVC. At 2049 - Patient noted to be in Atrial Fibrillation - Heart rate
90's. No c/o chest pain, pressure or discomfort. Abdomen round, soft, nontender. Normoactive bowel sounds. No BM. No c/o nausea. No vomiting. Bowman catheter intact and patent - Patient with no c/o pain or discomfort - Yellow urine - Outputs
as documented. Right [place].J. Cordis/[place]. Left A-Line. Labs sent. Levophed gtt off. Dobutamine at 2.5. C.O. 6.15 C.I. 2.79 SVR 871 CVP 14 PAP 48/23 (32). Sternal incision intact - Surgical adhesive - Open to air. Patient given CHG bath and
linens changed. Chest tube dressing changed. Assessment as documented.
[2024-02-08] MEDS: SENOKOT-S PO (21:01)
[2024-02-08] MEDS: NEURONTIN PO (21:28)
[2024-02-08] MEDS: TYLENOL PO (21:29)
[2024-02-08] MEDS: CALCIUM GLUCONATE 290 MG IV (21:36)
[2024-02-08] MEDS: DOBUTREX 500 MG 250 IV (21:37)
--- NOTE | 2024-02-08 22:30 | PTCARENOTE ---
Patient back in Sinus Rhythm then Atrial Fibrillation again. Ionized Calcium lab 1.16. Calcium Gluconate 4,000mg/250ml IV at 290 ml/hr infusing per PA order. C.O. 6.54 C.I. 2.96 SVR 868. Dobutamine at 2. Assessment as documented.
[2024-02-08 22:39] LABS: Glucose - Point of Care 143 mg/dl (70-99)
[2024-02-08] MEDS: PACERONE 200 MG PO (23:44)
[2024-02-09] VITALS (27 sets, daily range): BP systolic 85–130; BP diastolic 44–75; BMI 33.0
--- NOTE | 2024-02-09 00:30 | PTCARENOTE ---
Patient sleeping. Patient continues in Atrial Fibrillation. Amiodarone 200 mg PO x1. Dobutamine gtt at 1. C.O. 5.73 C.I. 2.59 SVR 1019. Assessment/Interventions as documented.
[2024-02-09] MEDS: DILAUDID 0.5 MG IV ×2 (01:28→13:44)
[2024-02-09] MEDS: NSS 500 IV (01:35)
--- NOTE | 2024-02-09 02:40 | PTCARENOTE ---
C.O. 5.37 C.I. 2.43 Dobutamine at 1. Remains in Atrial Fibrillation. IV Dilaudid for pain management. Assessment/Interventions as documented.
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
[2024-02-09 04:18] LABS: B.E. -1.2 mmol/L; HCO3 25.2 mmol/L (21-28); Ionized Calcium 1.34 mMOL/L (1.15-1.33); O2 Saturation % 99.2 % (94-98); O2 Therapy NRB; PCO2 49 mmHg (35-48); PO2 121 mmHg (83-108); pH 7.32 (7.35-7.45)
[2024-02-09 04:18] LABS: Hematocrit 29.2 % (39.0-52.0); Hemoglobin 9.7 g/dL (13.0-18.0); Mean Corp Hgb Conc. 33.2 g/dL (33.0-37.0); Mean Corpuscular Hgb 30.1 pg (27.0-31.0); Mean Corpuscular Volume 90.7 fL (80.0-94.0); Mean Platelet Volume 10.1 fL (7.4-10.4); Platelet Count 208 10^3/uL (130-400); Red Blood Cell Count 3.22 10^6/uL (4.70-6.10); Red Cell Dist. Width 13.5 % (11.5-14.5); White Blood Cell Count 20.9 10^3/uL (4.8-10.8)
[2024-02-09 04:21] LABS: Mixed Venous O2 Saturation 64.2 %
--- NOTE | 2024-02-09 04:30 | PTCARENOTE ---
Patient's left pleural chest tube pulled out. Dressing intact. No crepitus noted. Patient not sure how it become dislodged. No c/o SOB. No c/o chest pain, pressure or discomfort. Patient resting in bed watching television. PA immediately
arrived and assessed the site - Reinforced dressing. C.O. 5.66 C.I. 2.56. PA changed pacemaker settings to pace patient - IV Amiodarone Bolus now infusing without difficulty. Portable CXR this AM. AM lab work collected and sent.
Assessment/Interventions as documented.
[2024-02-09 04:41] LABS: Blood Urea Nitrogen 37 mg/dl (9-20); Calcium 8.9 mg/dl (8.4-10.2); Carbon Dioxide 27 mmol/L (22-30); Chloride 100 mmol/L (98-107); Estimated Creatinine Clearance 34 ml/min; Glucose 141 mg/dl (70-99); Magnesium 2.3 mg/dl (1.6-2.3); Potassium 5.1 mmol/L (3.5-5.1); Sodium 134 mmol/L (135-145); eGFR 27.13
[2024-02-09] MEDS: CORDARONE 103 MG IV (04:47)
[2024-02-09] MEDS: TYLENOL PO (05:02)
[2024-02-09] MEDS: NEURONTIN 100 MG PO ×3 (07:35→21:36)
[2024-02-09] MEDS: LOW STRENGTH ASPIRIN 81 MG PO (07:35)
[2024-02-09] MEDS: PROTONIX 40 MG PO (07:35)
[2024-02-09] MEDS: TYLENOL 1000 MG PO ×3 (07:35→21:36)
[2024-02-09] MEDS: FLOMAX 0.4 MG PO (07:35)
[2024-02-09] MEDS: ROXICODONE 5 MG PO ×3 (07:36→19:27)
[2024-02-09] MEDS: FEOSOL 325 MG PO (07:36)
[2024-02-09] MEDS: HEPARIN 5000 UNITS SC ×2 (07:36→16:06)
[2024-02-09] MEDS: SENOKOT-S 1 TABLET PO ×2 (07:36→19:28)
[2024-02-09] MEDS: BACTRIM DS 800 MG/160 MG 0.5 TABLET PO (07:36)
[2024-02-09] MEDS: LIDOCAINE 4% PATCH 1 PATCH TOPICAL (07:37)
[2024-02-09] MEDS: BACTROBAN 2% OINTMENT 1 APPLIC NASAL ×2 (07:38→19:29)
[2024-02-09 08:01] LABS: Glucose - Point of Care 160 mg/dl (70-99)
[2024-02-09] MEDS: NOVOLOG FLEXPEN-MODERATE RESISTANCE 1 UNITS SC ×2 (08:01→11:20)
--- NOTE | 2024-02-09 08:22 | PTCARENOTE ---
Patient received from night time babysitter RN; AAOx3, responds spontaneously to RN and follows commands; Anxious and forgetful; Shallow respirations; SpO2 97-100% on 15L Non-rebreather; Non-productive, occasional cough; CT x2 connected to -20 wall suction
draining serosanguineous drainage - no tidaling, air leak, or crepitus noted at this time; Site of previous left pleural chest tube with dressing over it - no crepitus felt this time but very tender to touch; Lungs diminished throughout but more
distinct on left side; Epicardial AV wires with temporary pacemaker settings VVI 50/2.5/2.0; Afib on monitor; VSS; +1 DP and +2 radial pulses; Poor appetite and Hypoactive BS; Bowman catheter draining yellow urine with brown sediment - patient
complaining of discomfort near tip of penis but no redness or skin issues noted; Surgical sites intact; PIVx #20 left wrist; Left radial arterial line and RIJ Cordis with Margot floated to 47 - all lines zeroed and level; RIJ Cordis with KVO
infusing; Dobutamine infusing - see nursing flowsheets for further details; PRN Oxycodone given for 8/10 pain in penis and sternum; See nursing documentation for further information.
CO: 5.03
CI: 2.28
SVR: 906
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
[2024-02-09] MEDS: BUMEX 1 MG IV ×2 (09:17→16:59)
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
[2024-02-09 10:30] LABS: Mixed Venous O2 Saturation 52.6 %
[2024-02-09 10:51] LABS: Glucose - Point of Care 166 mg/dl (70-99)
[2024-02-09 11:02] LABS: Mixed Venous O2 Saturation 61.3 %
--- NOTE | 2024-02-09 11:45 | PTCARENOTE ---
Patient temporarily converted to SR with 1st AVB at 0843 and went back into afib at 0844. IV Bumex 1 mg ordered and given. EKG completed - now in aflutter. Bowman catheter discontinued. SpO2 92-97% on 9L Midflow NC. MVO2 drawn off both RIJ Cordis and
Margot-Roney catheter for comparison - MVO2 results higher on Cordis and CVPA Cari notified and aware. Dobutamine decreased to 0.5 mcg/kg/min - see nursing flowsheets for further documentation.
CO: 5.03
CI: 2.28
SVR: 843
[2024-02-09] MEDS: FERRLECIT 110 MG IV (13:43)
[2024-02-09 13:57] LABS: Mixed Venous O2 Saturation 57.9 %
[2024-02-09 14:12] LABS: Mixed Venous O2 Saturation 56.8 %
[2024-02-09 14:24] LABS: Blood Urea Nitrogen 41 mg/dl (9-20); Calcium 8.3 mg/dl (8.4-10.2); Carbon Dioxide 27 mmol/L (22-30); Chloride 100 mmol/L (98-107); Estimated Creatinine Clearance 37 ml/min; Glucose 146 mg/dl (70-99); Potassium 4.7 mmol/L (3.5-5.1); Sodium 132 mmol/L (135-145); eGFR 29.99
[2024-02-09 16:07] LABS: Mixed Venous O2 Saturation 47.5 %
[2024-02-09 16:10] LABS: Mixed Venous O2 Saturation 56.9 %
[2024-02-09 16:19] LABS: Glucose - Point of Care 137 mg/dl (70-99)
[2024-02-09] MEDS: NOVOLOG FLEXPEN-MODERATE RESISTANCE SC (16:29)
--- NOTE | 2024-02-09 16:30 | PTCARENOTE ---
Patient stood at bedside and able to ambulate with assist x2 - returned to bed safely and patient able to tolerate sitting on side of bed for 20 minutes afterwards. Chest tubes with 5 ml of serous drainage after patient standing up. Chest tubes
discontinued and no complications noted when discontinuing them - VSS throughout and covered with vaseline gauze/4x4. MVO2 drawn off both RIJ Cordis and Margot-Roney catheter for comparison - MVO2 results higher on Cordis. ABG drawn for CVPA Cari to
calculate cardiac index because high resistance met when using Margot-Roney catheter to measure cardiac index and waveform doesn't look accurate.
CO: 4.78
CI: 2.16
SVR: 853
[2024-02-09 16:31] LABS: B.E. -0.5 mmol/L; HCO3 24.9 mmol/L (21-28); O2 Saturation % 97.9 % (94-98); PCO2 43 mmHg (35-48); PO2 85 mmHg (83-108); pH 7.37 (7.35-7.45)
[2024-02-09] MEDS: ZAROXOLYN 5 MG PO (17:37)
[2024-02-09] MEDS: KCL 10 MEQ PO (17:37)
--- NOTE | 2024-02-09 18:39 | PTCARENOTE ---
Dobutamine remains off and order given to remove A-line and Margot-Roney catheter. IV Bumex 1 mg and PO Metolazone 5 mg given. VSS throughout. No complications noted. Patient resting comfortably in bed at this time.
--- NOTE | 2024-02-09 20:15 | PTCARENOTE ---
Assumed care of patient at 1900. Patient found resting in bed at time of assessment. Patient is AOx4, follows commands appropriately, moves all extremities. Patient reportedly forgetful at times. Lung sounds are diminished bilateral throughout L>R
with saO2 93% on 6L via NC. Heart sounds are audible with an irregular rate, patient is on afib/a flutter on the cardiac nurse practitioner, patient has A+V wires with VVI settings 50.2.5/2.0. Patient has normal palpable pulses throughout and trace generalized
anasarca. Patient has hypoactive BS and is voiding clear yellow in urinal. There is a sternal incision approx with surg adhesive, L upper chest puncture with occlusive dressing that is CDI and ABD dressing over CT wound that is CDI. Patient has R IJ
cordis and L wrist 20G PIV. Given 5 Iza for sternal pain. No other complaints at this time. Call pulido within reach.
[2024-02-09] MEDS: FLEXERIL 5 MG PO (20:50)
[2024-02-09 21:08] LABS: Blood Urea Nitrogen 45 mg/dl (9-20); Calcium 8.9 mg/dl (8.4-10.2); Carbon Dioxide 27 mmol/L (22-30); Chloride 97 mmol/L (98-107); Estimated Creatinine Clearance 38 ml/min; Glucose 125 mg/dl (70-99); Potassium 4.5 mmol/L (3.5-5.1); Sodium 133 mmol/L (135-145); eGFR 31.63
[2024-02-09] MEDS: PACERONE 200 MG PO (21:36)
[2024-02-09 21:41] LABS: Magnesium 2.4 mg/dl (1.6-2.3)
[2024-02-10] VITALS (15 sets, daily range): BP systolic 99–135; BP diastolic 53–94; PULSE 69; O2SAT 97; BMI 32.5
--- NOTE | 2024-02-10 | PTCARENOTE ---
Patient reassessed. Remains in afib/aflutter on the sql report analyst. Pain well managed at this time patient in bed with eyes closed subjectively asleep. Call pulido within reach.
[2024-02-10] MEDS: HEPARIN 5000 UNITS SC (01:03)
[2024-02-10] MEDS: ROXICODONE 5 MG PO ×4 (01:55→20:30)
[2024-02-10 01:59] LABS: Glucose - Point of Care 114 mg/dl (70-99)
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
[2024-02-10] MEDS: TYLENOL 1000 MG PO ×3 (05:02→22:30)
[2024-02-10 05:09] LABS: Blood Urea Nitrogen 45 mg/dl (9-20); Carbon Dioxide 28 mmol/L (22-30); Chloride 101 mmol/L (98-107); Estimated Creatinine Clearance 42 ml/min; Glucose 109 mg/dl (70-99); Magnesium 2.3 mg/dl (1.6-2.3); Potassium 3.9 mmol/L (3.5-5.1); Sodium 133 mmol/L (135-145); eGFR 35.46
--- NOTE | 2024-02-10 05:38 | PTCARENOTE ---
Patient reassessed. 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 Pain control with Oxy 5. AM labs obtained. AM hygiene care provided. Patient successfully transferred OOB to chair with little difficulty. O2 weaned to
4L. Call pulido within reach.
[2024-02-10] MEDS: KCL 20 MEQ PO (06:09)
[2024-02-10] MEDS: CALCIUM GLUCONATE 100 IV (06:09)
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
[2024-02-10] MEDS: NOVOLOG FLEXPEN-MODERATE RESISTANCE SC ×3 (08:25→18:41)
[2024-02-10 08:32] LABS: Glucose - Point of Care 119 mg/dl (70-99)
[2024-02-10] MEDS: PROTONIX 40 MG PO (08:56)
[2024-02-10] MEDS: LIDOCAINE 4% PATCH 1 PATCH TOPICAL (08:56)
[2024-02-10] MEDS: PACERONE 200 MG PO ×3 (08:57→22:30)
[2024-02-10] MEDS: NEURONTIN 100 MG PO ×3 (08:57→22:30)
[2024-02-10] MEDS: ULORIC 40 MG PO (08:57)
[2024-02-10] MEDS: SENOKOT-S 1 TABLET PO ×2 (08:57→20:30)
[2024-02-10] MEDS: BACTRIM DS 800 MG/160 MG 0.5 TABLET PO (08:57)
[2024-02-10] MEDS: FEOSOL 325 MG PO (08:58)
[2024-02-10] MEDS: LOW STRENGTH ASPIRIN 81 MG PO (08:58)
[2024-02-10] MEDS: BACTROBAN 2% OINTMENT 1 APPLIC NASAL ×2 (08:58→20:31)
[2024-02-10] MEDS: LOPRESSOR 12.5 MG PO ×2 (08:58→20:30)
[2024-02-10] MEDS: KCL 40 MEQ PO (08:59)
[2024-02-10] MEDS: BUMEX 2 MG IV (09:00)
--- NOTE | 2024-02-10 09:00 | PTCARENOTE ---
Assumed care of patient at 0700. Pt is awake, alert, and oriented. Pt with complaints of sternal pain, PRN Roxicodone administered. Pt remains Aflutter HR 60's. BP 100/53 MAP 67. Epicardial AV wires in place set to VVI 50/2.5/2. Pulse oximetry 97%
on 4L nasal cannula. Pt tolerating PO diet. Voiding without difficulty in urinal. Midsternal incision approximated and BRAD. Right IJ cordis in place with KVO. Echo done at bedside this morning, pt now back OOB in chair with call pulido within reach.
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
[2024-02-10] MEDS: FLEXERIL 5 MG PO (12:19)
--- NOTE | 2024-02-10 12:57 | PTCARENOTE ---
Pt converted to SR with HR 70's around 1049. BP 99/56 MAP 69. Epicardial AV wire insulated. Right IJ cordis d/c'd. New peripheral IV placed in right arm by IV team RN. Chest tube dressing changed.
[2024-02-10 13:30] LABS: Glucose - Point of Care 110 mg/dl (70-99)
[2024-02-10] MEDS: NSS IV (13:46)
[2024-02-10] MEDS: FERRLECIT 110 MG IV (14:55)
--- NOTE | 2024-02-10 16:13 | CM ---
dc plans remain , home when medically stable with f/u visit from the ct transitional care nurse.
[2024-02-10] MEDS: DILAUDID 0.25 MG IV (16:57)
--- NOTE | 2024-02-10 16:58 | PTCARENOTE ---
Pt took late afternoon nap. Now back out of bed in chair. Pt with continued complaints of pain, PRN Dilaudid administered for relief. Pt remains SR with HR 70's. BP 109/61 MAP 74. Pulse oximetry 100% on room air.
[2024-02-10 18:37] LABS: Glucose - Point of Care 115 mg/dl (70-99)
--- NOTE | 2024-02-10 21:00 | PTCARENOTE ---
Assumed care of pt from dayshift RN. Walking rounds completed. Pt AAOx3. SR on the tele monitor. HR 70s. BP 120/62. MAP 80. Temporary epicardial A/V wires intact and insulated. Palpable pulses throughout. Trace edema. Pt placed on 2 L NC. POX 96%.
Lung sounds diminished at the base. Deep breathing and IS encouraged. CT dressings C/D/I. Abdomen round/nontender. +BS. Pt reports increased appetite. Pt voiding w/o issue. Sternal incision approximated and BRAD. PIV x1 C/D/I. Pt is 1x assist. See
MAR for pain medication administration. See worklist for full nursing assessment and interventions. Call pulido within reach.
[2024-02-11] VITALS (16 sets, daily range): BP systolic 84–158; BP diastolic 55–74; PULSE 69; O2SAT 95; BMI 32.6
--- NOTE | 2024-02-11 00:12 | PTCARENOTE ---
No acute change in assessment. Pt Sinus on the tele monitor. HR 60s. BP 113/68. MAP 81. Pt on 2 L NC. POX 95%. All surgical sites stable. Call pulido within reach.
[2024-02-11] MEDS: ROXICODONE 5 MG PO ×2 (03:49→08:46)
--- NOTE | 2024-02-11 04:14 | SUR.OPER ---
No change in assessment. Pt SR. HR 60s. EKG obtained and showed SR w/ 1st degree. BP 109/68. MAP 82. Pt OOB to void and then positioned back into bed. Pt C/O pain - see APR. Lab draw unsuccessful. Will contact phlebotomy. Call pulido within reach.
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
[2024-02-11 05:42] LABS: ALT (SGPT) 19 U/L (0-50); AST (SGOT) 29 U/L (17-59); Albumin 3.1 g/dl (3.5-5.0); Alkaline Phosphatase 59 U/L (38-126); Blood Urea Nitrogen 54 mg/dl (9-20); Calcium 8.8 mg/dl (8.4-10.2); Carbon Dioxide 30 mmol/L (22-30); Chloride 95 mmol/L (98-107); Direct Bilirubin 0.2 mg/dl (0.0-0.4); Estimated Creatinine Clearance 42 ml/min; Glucose 120 mg/dl (70-99); Magnesium 2.4 mg/dl (1.6-2.3); Sodium 133 mmol/L (135-145); Total Bilirubin 0.4 mg/dl (0.2-1.3); Total Protein 5.7 g/dl (6.3-8.2); eGFR 35.46
[2024-02-11] MEDS: TYLENOL 1000 MG PO (06:11)
[2024-02-11 06:37] LABS: Hematocrit 25.9 % (39.0-52.0); Hemoglobin 8.6 g/dL (13.0-18.0); Mean Corp Hgb Conc. 33.2 g/dL (33.0-37.0); Mean Corpuscular Hgb 30.1 pg (27.0-31.0); Mean Corpuscular Volume 90.6 fL (80.0-94.0); Mean Platelet Volume 10.4 fL (7.4-10.4); Platelet Count 243 10^3/uL (130-400); Red Blood Cell Count 2.86 10^6/uL (4.70-6.10); Red Cell Dist. Width 13.7 % (11.5-14.5); White Blood Cell Count 11.7 10^3/uL (4.8-10.8)
[2024-02-11 07:44] LABS: Glucose - Point of Care 118 mg/dl (70-99)
[2024-02-11] MEDS: NOVOLOG FLEXPEN-MODERATE RESISTANCE SC ×2 (07:58→12:35)
--- NOTE | 2024-02-11 08:30 | PTCARENOTE ---
Patient received from warehouse worker 2nd shift RN; AAOx3, responds spontaneously to RN and follows commands; Anxious and forgetful; Shallow respirations; HU; SpO2 91-97% on room air; Non-productive, occasional cough; Lungs diminished throughout; Epicardial AV
wires insulated and temporary pacemaker turned off; SR with 1st AVB on monitor; VSS; +1 DP and +2 radial pulses; Normoactive BS; Patient urinating in bathroom; Surgical sites intact; PIVx1; PRN Oxycodone given for 6/10 pain in sternum; See nursing
documentation for further information.
[2024-02-11] MEDS: NEURONTIN 100 MG PO (08:45)
[2024-02-11] MEDS: SENOKOT-S 1 TABLET PO (08:46)
[2024-02-11] MEDS: FLOMAX 0.4 MG PO (08:46)
[2024-02-11] MEDS: VITAMIN C 500 MG PO (08:46)
[2024-02-11] MEDS: PACERONE 200 MG PO (08:46)
[2024-02-11] MEDS: BACTRIM DS 800 MG/160 MG 0.5 TABLET PO (08:46)
[2024-02-11] MEDS: PROTONIX 40 MG PO (08:46)
[2024-02-11] MEDS: LOPRESSOR 12.5 MG PO (08:46)
[2024-02-11] MEDS: LASIX 40 MG PO (08:47)
[2024-02-11] MEDS: LOW STRENGTH ASPIRIN 81 MG PO (08:47)
[2024-02-11] MEDS: ELIQUIS 5 MG PO (08:47)
[2024-02-11] MEDS: FEOSOL 325 MG PO (08:47)
[2024-02-11] MEDS: LIDOCAINE 4% PATCH 1 PATCH TOPICAL (08:47)
[2024-02-11] MEDS: KCL 20 MEQ PO (08:47)
[2024-02-11] MEDS: BACTROBAN 2% OINTMENT 1 APPLIC NASAL (08:47)
--- NOTE | 2024-02-11 09:15 | W.PN.CD ---
Today's Communication / Plan
-
Continue Eliquis, likely 3-12 month course and 14 day monitor prior to stopping
Reasonable to go home on low dose AMIODARONE for 28 days then STOP
SBE prophylaxis 1 hr before dental procedures
Continue chronic suppressive ATB for old OSTEO
No objection to discharge
Impression / Plan
-
Background: 68M with recovered stress-induced cardiomyopathy, increased LVOT gradient, mitral regurgitation, right lower extremity DVT status post IVC filter (2011), chronic osteomyelitis on chronic suppression antibiotics, hypertension and
nonobstructive coronary artery disease by cardiac catheterization (2013) admitted with worsening HFpEF, found to have severe mitral valve regurgitation.
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
S/p Severe, degenerative mitral regurgitation
- S/P radical MV repair,#35 Atriclip), and PFO/ASD closure with Dr. Hayes, 02/07/2024.
Post-op AFib/flutter
- In sinus, no signif analy
- On Eliquis, likely 3-12 month course and 14 day monitor prior to stopping
- Reasonable to go home on low dose AMIODARONE for 28 days then STOP
First degree AV block
Post op anemia
- No clinical concern for active bleeding or hemolysis
Acute on chronic kidney disease
No obstructive CAD, luminal disease present 2013 and again 01/2024
Transient LVOT gradient
Hepatitis C status post Epclusa
Prior DVT with IVC filter ([facility], 2011)
Prediabetes, HbA1c 5.8%
Chronic osteomyelitis on suppressive antibiotics
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
Subjective/Interval History:
Feels much better than yesterday
DATA:
Echo (TTE) 02/10/2024
technically limited study with grossly normal biventricular size and function.
Poor endocardial visualization limits wall motion analysis.
Status post mitral valve repair with normal gradients (11/5 mmHg) and no
residual regurgitation.
Findings are similar to intraoperative VIOLETA after mitral valve repair on
02/07/2024.
TTE, 02/04/2024:
CONCLUSIONS
Normal biventricular size and systolic function without regional wall motion
abnormality.
Mild concentric left ventricular hypertrophy.
Flail posterior mitral valve leaflet with severe mitral regurgitation.
Severe pulmonary hypertension.
Compared to the prior on 03/17/2020, flail leaflet and severe mitral
regurgitation is new.
Transesophageal Echocardiogram, 02/05/2024:
CONCLUSIONS
Normal biventricular size and systolic function without regional wall motion
abnormality. LVEF 60-65%.
Flail P2 segment of the mitral valve with severe eccentric mitral
regurgitation.
No other significant valvular disease.
No evidence of pulmonary hypertension (28 mmHg).
Trivial circumferential pericardial effusion.
Compared to TTE on 02/04/2024, there is no significant change accounting for
differences in technique.
Cardiac Catheterization, 02/05/2024:
CONCLUSIONS
1. No obstructive coronary artery disease.
2. LVEDP of 15 mmHg.
Intraoperative VIOLETA, 02/07/2024:
CONCLUSIONS
Severe mitral regurgitation, prolapsed junction of P2 P3 scallops with flail
segment. Anterior leaflet height is 30 mm.
Normal left biventricular size and systolic function.
Moderate left atrial enlargement. No thrombus in left atrial appendage.
Mild TR. Trace MR.
POST OPERATIVE FINDINGS
Status post mitral valve repair and a 34 mm annuloplasty ring, the ring is
well-seated, no perivalvular leak, there is evidence of resected posterior
leaflet segment. There is a residual trace mitral regurgitation. No mitral
stenosis. Mean gradient across the valve 4 mmHg.
Status post left atrial appendage exclusion, no flow seen through the left
atrial appendage remnant.
Status post closure of PFO, no flow seen across the interatrial septum.
Normal right ventricular size and function.
Trace TR. Trace AI.
The rest of the study is unchanged.
Physical Exam
Vital Signs/Labs
Vital Signs
Temp Pulse Resp BP Pulse Ox
98.2 F 69 16 116/64 93
02/11/24 07:45 02/11/24 08:00 02/11/24 07:45 02/11/24 08:31 02/11/24 07:45
02/10/24 02/11/24 02/12/24
06:59 06:59 06:59
Actual Weight 103.1 kg
02/11/24 04:50
02/11/24 04:50
PT 16.9 Sec (11.4-14.6) H 02/07/24 15:31
INR 1.34 02/07/24 15:31
APTT 29.2 Sec (23.4-35.0) 02/07/24 15:31
Magnesium 2.4 mg/dl (1.6-2.3) H 02/11/24 04:50
Triglycerides 125 mg/dl (10-149) 02/04/24 06:36
LDL Cholesterol, Calc 133 mg/dl 02/04/24 06:36
VLDL Cholesterol, Calc 25 mg/dl (0-30) 02/04/24 06:36
HDL Cholesterol 25 mg/dl 02/04/24 06:36
Free T4 1.56 ng/dl (0.78-2.19) 02/04/24 06:36
02/03/24 02/08/24
18:28 20:25
Njk-[id number]-[id number] Pept 1730 2500
Physical Exam
Constitutional: No acute distress
EENT: Anicteric
Cardiovascular: Rhythm & rate is regular and Pedal edema is absent
Respiratory: Respiratory effort normal and Lungs clear to auscul. (decreased at bases)
GI: Soft and Distention absent
Neuro/Psych: AO x 3
Data Reviewed
-
Date of Service: February 11, 2024
--- NOTE | 2024-02-11 11:10 | CM ---
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
[2024-02-11 12:36] LABS: Glucose - Point of Care 111 mg/dl (70-99)
--- NOTE | 2024-02-11 12:45 | PTCARENOTE ---
2 view CXR completed. AV wires retracted and cut by LAMONTE Munoz - no complications noted and VSS; CHG shower completed; Patient resting in chair.
--- NOTE | 2024-02-11 13:09 | W.DCSUMMARY ---
Discharge Summary
Discharge Data
Date of Admission: 02/03/24
Date of Discharge: 02/11/24
Total time spent discharging patient (in min): 45
-
Pending Results: No
Hospital Course
Primary care physician:
Dr. Bong Thomas
Outpatient supervisor ornamental ironworking:
Dr. Booth
Inpatient consultants:
CBC, track laying supervisor, anesthesia
Procedures:
1. Radical mitral valve repair [34 mm band annuloplasty, quadrangular resection of the P2 scallop with the flail/torn cords, free edge remodeling between P1 P2 and P2 P3 and artificial Orlando-Aureliano cords placed to P1 P2 and P2 P3]
Primary Diagnosis:
1. Myxomatous mitral valve degeneration, flail/torn scallop of the posterior leaflet with severe mitral valve insufficiency and respiratory failure
Secondary Diagnoses:
1. Post-operative atrial fibrillation
2. Left sided Pneumothorax
3. History of hepatitis C treatment completed in the past
4. Chronic kidney disease
5. Chronic pain syndrome
6. History of severe traumatic orthopedic injuries requiring multiple extensive surgeries
7. Morbidly obese with a BMI of 32
8. Nonobstructive coronary artery disease
9. Hypertension
10. Hyperlipidemia
11. Traumatic brain injury
12. History of drug abuse
HPI: 68M with recovered stress-induced cardiomyopathy, increased LVOT gradient, mitral regurgitation, right lower extremity DVT status post IVC filter (2011), chronic osteomyelitis on chronic suppression antibiotics, hypertension and nonobstructive
coronary artery disease by cardiac catheterization (2013) admitted with worsening HFpEF, found to have severe mitral valve regurgitation.
Hospital course: Patient was admitted on 02/02 with new onset of shortness of breath for several weeks. Echocardiogram performed in the emergency room showed severe MR. He was set up for a left heart cath, VIOLETA, and preoperative testing. Patient
was eventually taken to the CV OR on 02/06 for a mitral valve repair with Dr. Hayes. He returned to the CVICU mildly hypoxic in which he received Lasix IntraOp, PEEP was temporarily increased to 10 but decreased to 8 due to hypotension, nebulizers
and a additional 40 mg of IV Lasix per pulmonary. Patient hypoxia corrected and was later extubated. On 02/07 postoperative day 1, dobutamine was weaned to 2.5. On chest x-ray he was found to have a left pneumothorax which worsened with a repeat
chest x-ray so a left-sided pigtail chest tube was inserted. Later in the day patient converted into atrial fibrillation with a rapid ventricular response into the 140s in which she was treated with IV Lopressor and Amio bolus. He was again
aggressively diuresed with Lasix and Bumex. On 02/08 postoperative day 2 patient continued to be in and out of atrial fibrillation. Chest tubes were discontinued but wires remained in place. Diureses was continued with Zaroxolyn augmentation.
Dobutamine was weaned off and arterial line and Bear-Roney catheter was removed. On 02/09 postoperative day 3, creatinine trended down it peaked at 2.6. He was mildly hyponatremic and was diuresed with Bumex 2 mg. Due to the recurrent atrial
fibrillation patient was started on Eliquis. Repeat echocardiogram did not show residual regurgitation and normal gradients. On 02/10 postoperative day 4, patient's pacing wires were cut at the skin and two-view chest x-ray was performed. Chest
x-ray revealed a trace pneumothorax and the case was discussed with Dr. Hayes and the decision was to send the patient home with repeat chest x-ray in 1 week. Otherwise patient was deemed stable for discharge home today.
Home medication changes:
See below
Discharge Plan
-
Patient Disposition: Home (Routine Discharge)
Discharge Diagnosis/Procedures: mitral regurgitation/mitral valve repair & left atrial appendage clip
Condition: Good
Diet: Low Fat, Low Cholesterol and Low Sodium
Activity: No strenuous activity
Driving Restrictions: Not until seen by your Dr
Bathing Restrictions: OK to Shower
Blood Work: cxr, BMP and magnesium in 1 week
Other Services: Cardiac Rehab
Specialty Instructions: Weigh Daily- Call MD for wt gain/loss 3 lbs overnight/5 lbs in 1 week
Activity Restrictions/Additional Instructions:
ACTIVITY:
-No strenuous activity: no heavy lifting, pushing, pulling anything over 15 pounds for one month
-continue to use stairs as tolerated
DRIVING RESTRICTIONS:
-No driving for one month or until approved by your surgeon
WOUND CARE:
-Shower daily. Use soap & water.
-No lotions, creams or powders on incision area.
DIET:
-continue a low fat/low cholesterol diet.
-IF you are diabetic, continue carb controlled diet.
CARDIAC REHAB:
-Please make appointment to start in 5-6 weeks with your local hospital program. (See Cardiac Rehabilitation Discharge Booklet).
SPECIALTY INSTRUCTIONS:
-Weigh yourself daily. Call your physician for any weight gain/loss of 3 lbs overnight or 5 lbs in one week.
-REPORT any clicking noise or uneven appearance of your sternum to your surgeon immediately.
-If you smoke, you are instructed to quit. The [place] smoking hotline phone number is [phone]
Instructions: *CBC Heart Failure Instructions
Referrals:
CT Transitional Care Nurse [Outside] (The Cardiothoracic Transitional Care Nurse will call you to set up a visit in 1-2 days.)
[facility]. Cardiac Rehab [Outside] - 03/19/24 8:00 am
(Cardiac Rehab Orientation appointment and� First Exercise appointment is on ___Mar 19 at 8:00 am____
The Cardiac Rehab gym is located on the first floor of the [facility].)
Bong Thomas MD [Family Provider] -
Mitesh Alba MD [Active] - in four to six weeks (full PFTs on day of office visit; COPD seen on spirometry during hospitalization)
Mary Magana CRNP [Specified Professional Personl] - 03/18/24 9:20 am
Avel Hayes MD [Active] - 03/09/24 2:00 pm
Additional Discharge Medication Instructions: please note that your dose of lopressor has changed.
Prescriptions:
New
acetaminophen 325 mg Tablet
650 mg PO Q4HPRN PRN (Reason: mild pain,headache,temp >101F ) Qty: 0 0RF
Eliquis 5 mg Tablet
5 mg PO BID Qty: 60 1RF
potassium chloride 10 mEq capsule, extended release
10 meq PO DAILY Qty: 7 0RF
furosemide 40 mg Tablet
40 mg PO DAILY Qty: 7 0RF
aspirin 81 mg Tablet,Chewable
81 mg PO DAILY Qty: 0 0RF
metoprolol tartrate 25 mg Tablet
12.5 mg PO Q12 Qty: 60 1RF
amiodarone 200 mg Tablet
200 mg PO DAILY Qty: 30 0RF
gabapentin 100 mg Capsule
100 mg PO TID Qty: 30 0RF
Continued
sulfamethoxazole-trimethoprim [Bactrim DS] 800-160 mg Tablet
0.5 tab PO DAILY Qty: 0 0RF
tamsulosin 0.4 mg Capsule
0.4 mg PO Q48H Qty: 0 0RF
oxycodone 5 mg Tablet
5 mg PO QID Qty: 0 0RF
Patient Comments:
02/03/24: last filled 01/27/24 for 90 tablets over 30 days per PDMP.
febuxostat 40 mg Tablet
40 mg PO Q48H Qty: 0 0RF
Discontinued
metoprolol tartrate 25 mg Tablet
25 mg PO BID
Discharge Orders:
Discharge Patient (As Directed); Ordered 02/11/24
Ordered By: Georgie Flor
Care Plan Goals
Care Plan Goals:
Problem: Readiness for enhanced knowledge related to diagnosis and treatment plan
Goal: Understand your diagnosis and treatment plan needs, including medications if applicable.
Instructions: Know your diagnosis, underlying causes and treatment plan options, including medications if applicable. Consult with your health care team to learn about your diagnosis and treatment plan, including medications if applicable.
Discharge Date and Time
Print Language: GERMAN
--- NOTE | 2024-02-11 14:06 | PTCARENOTE ---
Patient discharged to home - states full understanding of discharge instructions and has no further questions at this time; IV access and surveillance monitor removed; Patient belongings with patient; VSS; Taken by wheelchair for discharge - being
picked up by his friend.
== END 2024-02-11 14:52 | disposition home or self-care (01) | DRG 216 ==
LOC: CVICU 22:57
PROVIDERS: Anesthesiology; Family Medicine; Internal Medicine Interventional Cardiology; Nurse Practitioner Adult Health; Physician Assistant Medical; Physician Assistant Surgical; Registered Nurse; ADMITTING PHYSICIAN Hospitalist; ATTENDING PHYSICIAN Thoracic Surgery (Cardiothoracic Vascular Surgery); CONSULT PHYSICIAN Internal Medicine Critical Care Medicine; CONSULT PHYSICIAN Student in an Organized Health Care Education/Training Program; EMERGENCY PHYSICIAN Emergency Medicine; FAMILY PHYSICIAN Family Medicine
PROC: B2151ZZ Fluoroscopy of Left Heart using Low Osmolar Contrast (ICD-10-PCS; 2024-02-05)
PROC: B2111ZZ Fluoroscopy of Multiple Coronary Arteries using Low Osmolar Contrast (ICD-10-PCS; 2024-02-05)
PROC: 4A023N7 Measurement of Cardiac Sampling and Pressure, Left Heart, Percutaneous Approach (ICD-10-PCS; 2024-02-05)
PROC: B24BZZ4 Ultrasonography of Heart with Aorta, Transesophageal (ICD-10-PCS; 2024-02-07)
PROC: 02UG0JZ Supplement Mitral Valve with Synthetic Substitute, Open Approach (ICD-10-PCS; 2024-02-07)
PROC: 02BG0ZZ Excision of Mitral Valve, Open Approach (ICD-10-PCS; 2024-02-07)
PROC: 5A1221Z Performance of Cardiac Output, Continuous (ICD-10-PCS; 2024-02-07)
PROC: 02L70CK Occlusion of Left Atrial Appendage with Extraluminal Device, Open Approach (ICD-10-PCS; 2024-02-07)
PROC: 0W9B30Z Drainage of Left Pleural Cavity with Drainage Device, Percutaneous Approach (ICD-10-PCS; 2024-02-08)
DX: I50.43 Acute on chronic combined systolic (congestive) and diastolic (congestive) heart failure (principal); I51.1 Rupture of chordae tendineae, not elsewhere classified; J96.01 Acute respiratory failure with hypoxia; T81.11XA Postprocedural cardiogenic shock, initial encounter; J95.1 Acute pulmonary insufficiency following thoracic surgery; M86.661 Other chronic osteomyelitis, right tibia and fibula; N17.9 Acute kidney failure, unspecified; D62 Acute posthemorrhagic anemia; J95.811 Postprocedural pneumothorax; E87.1 Hypo-osmolality and hyponatremia; Q21.12 Patent foramen ovale; I48.3 Typical atrial flutter; D84.821 Immunodeficiency due to drugs; I27.20 Pulmonary hypertension, unspecified; I25.10 Atherosclerotic heart disease of native coronary artery without angina pectoris; I34.0 Nonrheumatic mitral (valve) insufficiency; Z68.32 Body mass index [BMI] 32.0-32.9, adult; Y83.2 Surgical operation with anastomosis, bypass or graft as the cause of abnormal reaction of the patient, or of later complication, without mention of misadventure at the time of the procedure; N18.32 Chronic kidney disease, stage 3b; I12.9 Hypertensive chronic kidney disease with stage 1 through stage 4 chronic kidney disease, or unspecified chronic kidney disease; G89.4 Chronic pain syndrome; M10.9 Gout, unspecified; R31.9 Hematuria, unspecified; I48.91 Unspecified atrial fibrillation; R25.2 Cramp and spasm; K59.00 Constipation, unspecified; E86.1 Hypovolemia; F32.A Depression, unspecified; F41.9 Anxiety disorder, unspecified; N18.9 Chronic kidney disease, unspecified; R73.03 Prediabetes; E78.5 Hyperlipidemia, unspecified; E66.811 Obesity, class 1; N40.0 Benign prostatic hyperplasia without lower urinary tract symptoms; I25.2 Old myocardial infarction; Z11.52 Encounter for screening for COVID-19; Z79.01 Long term (current) use of anticoagulants; Z79.2 Long term (current) use of antibiotics; Z79.891 Long term (current) use of opiate analgesic; Z79.899 Other long term (current) drug therapy; Z82.49 Family history of ischemic heart disease and other diseases of the circulatory system; Z86.19 Personal history of other infectious and parasitic diseases; Z86.718 Personal history of other venous thrombosis and embolism; Z87.820 Personal history of traumatic brain injury; Z87.891 Personal history of nicotine dependence; Z95.5 Presence of coronary angioplasty implant and graft; Z79.60 Long term (current) use of unspecified immunomodulators and immunosuppressants
CPT/HCPCS: 88305; 93308; 36600; 70355; 71045; 71046; 71250; 74018; 80048; 80053; 80061; 81003; 81015; 82248; 82330; 82565; 82805; 82810; 82947; 82962; 83036; 83605; 83735; 83880; 84132; 84302; 84439; 84443; 84484; 84520; 85014; 85018; 85025; 85027; 85049; 85610; 85730; 86850; 86900; 86901; 86920; 87070; 87086; 87502; 87811; 93005; 93306; 93312; 93320; 93321; 93325; 93458; 93880; 94002; 94060; 94640; 96374; 96375; 97162; 97530; 99152; 99153; 99285; C1894; J2916; Q9967

== ENCOUNTER → 2024-02-18 10:26 | Outpatient (REF) | payer MEDICARE, SELFPAY | LOC: RAD 10:26 | PROVIDERS: ATTENDING PHYSICIAN Thoracic Surgery (Cardiothoracic Vascular Surgery); FAMILY PHYSICIAN Family Medicine | DX: J95.811 Postprocedural pneumothorax (principal) | CPT/HCPCS: 71046 ==

== ENCOUNTER → 2024-05-11 13:37 | Outpatient (REF) | payer MEDICARE, SELFPAY | LOC: RAD 13:37 | PROVIDERS: ATTENDING PHYSICIAN Internal Medicine Nephrology; FAMILY PHYSICIAN Family Medicine | DX: N17.9 Acute kidney failure, unspecified (principal) | CPT/HCPCS: 76770 ==

== ENCOUNTER → 2024-08-31 09:35 | Outpatient (REF) | payer OTHER, SELFPAY | LOC: RCS 09:35 | PROVIDERS: ATTENDING PHYSICIAN Thoracic Surgery (Cardiothoracic Vascular Surgery); FAMILY PHYSICIAN Family Medicine | DX: Z98.890 Other specified postprocedural states (principal) | CPT/HCPCS: 93306 ==

== ENCOUNTER → 2024-11-05 17:27 | Outpatient (REF) | payer OTHER, SELFPAY | LOC: MRI 3T 17:27 | PROVIDERS: ATTENDING PHYSICIAN Specialist; FAMILY PHYSICIAN Family Medicine | DX: R97.20 Elevated prostate specific antigen [PSA] (principal) | CPT/HCPCS: 72197; A9575 ==